=== PATIENT | male | born 1955 | race Caucasian/White ===

== ENCOUNTER 2021-03-21 14:24 | Inpatient (IN) | payer OTHER ==
[~2021-03-21] VITALS: Ht 185.4 cm; Wt 56.2 kg
--- NOTE | 2021-03-21 14:41 | NUR ---
BIB RA FROM [facility] FOR FAILURE TO THRIVE AND POOR APPETITE. PT IS ALERT, ORIENTED X 0. SLURRED SPEECH, MUSCLE RIGIDITY. BREATHING EVEN AND UNLABORED. STRENGTH 3/5 IN UPPER EXTREMITIES. PT TRANSPORTED TO ER BED 11. WILL CONTINUE TO MONITOR.
--- NOTE | 2021-03-21 16:17 | NUR ---
RN DRAWN LABS
[2021-03-21 16:33] LABS: BASOPHILS # (AUTO) 0.1 K/uL (0.0-0.2); BASOPHILS % (AUTO) 0.8 % (0.0-2.0); EOSINOPHILS % (AUTO) 5.6 % (0.0-6.0); HEMATOCRIT 37 % (39-51); HEMOGLOBIN 12.1 g/dL (13.5-17.5); LYMPHOCYTES # (AUTO) 1.5 K/uL (0.8-4.8); LYMPHOCYTES % (AUTO) 18.4 % (20.0-44.0); MEAN CORPUSCULAR HGB CONC 33 g/dl (31.0-36.0); MEAN CORPUSCULAR VOLUME 86 fL (80-96); MONOCYTES # (AUTO) 0.6 K/uL (0.1-1.30); MONOCYTES % (AUTO) 7.7 % (2.0-12.0); NEUTROPHILS # (AUTO) 5.5 K/uL (1.8-8.9); NEUTROPHILS % (AUTO) 67.5 % (43.0-81.0); PLATELET COUNT (AUTO) 206 K/uL (150-450); RED BLOOD CELL COUNT(AUTO) 4.26 MIL/uL (4.5-6.0); WHITE BLOOD COUNT (AUTO) 8.1 K/uL (4.3-11.0)
[2021-03-21 17:01] LABS: CALCIUM, SERUM 8.1 mg/dL (8.5-10.1); CREATININE 0.4 mg/dL (0.6-1.3); POTASSIUM 3.9 mmol/L (3.5-5.1)
[2021-03-21 17:07] LABS: ALBUMIN 2.7 g/dL (3.4-5.0); BILIRUBIN,DIRECT 0.1 mg/dL (0.0-0.2); BILIRUBIN,TOTAL 0.3 mg/dL (0.2-1.0)
--- NOTE | 2021-03-21 17:28 | NUR ---
COVID TEST COLLECTED AND SENT
[2021-03-21] MEDS ORDERED: IV NS 0.9% 1,000 ML BAG IV ONE (18:00)
--- NOTE | 2021-03-21 18:06 | NUR ---
ADMISSION PACKET SUBMITTED.
--- NOTE | 2021-03-21 18:41 | NUR ---
MED SURGE BED REQUESTED.
--- NOTE | 2021-03-21 19:03 | NUR ---
RFA #20 S/L; PATENT & INTACT. IVF NS 1000ML INFUSING.
--- NOTE | 2021-03-21 19:03 | NUR ---
URINE COLLECTED AND SENT TO LAB. PT KEPT CLEAN AND DRY. ALL NEEDS MET
[2021-03-21 19:34] LABS: BILIRUBIN,URINE NEGATIVE (NEGATIVE); COLOR,URINE YELLOW (YELLOW); LEUKOCYTE ESTERASE ,URINE NEGATIVE (NEGATIVE); NITRITE, URINE NEGATIVE (NEGATIVE); PH,URINE 7.5 (5.0-8.0); PROTEIN,URINE NEGATIVE (NEGATIVE); UGLUCOSE NEGATIVE (NEGATIVE)
[2021-03-21 20:08] LABS: BACTERIA,URINE None seen /HPF (None Seen); RBC,URINE 0-2 /HPF (0-2); WBC,URINE 0-2 /HPF (0-3)
[2021-03-21 20:09] LABS: SQUAMOUS EPITHELIAL CELL,UR 0-2 /HPF (None Seen); URINE AMORPHOUS PHOSPHATES Many /HPF (None Seen)
[2021-03-21] MEDS ORDERED: Z GUARD REMEDY 4 OZ OINT TP PRN (21:00)
[2021-03-21] MEDS ORDERED: ACETAMINOPHEN 325 MG TABLET PO PRN (21:00)
[2021-03-21] MEDS ORDERED: ONDANSETRON HCL/PF 4 MG/2 ML VIAL IVP PRN (21:00)
[2021-03-21] MEDS ORDERED: ZOLPIDEM TARTRATE 5 MG TABLET PO PRN (21:00)
--- NOTE | 2021-03-21 21:37 | NUR ---
room 111-1
[2021-03-21 23:00] VITALS: BP 109/70
--- NOTE | 2021-03-21 23:09 | NUR ---
PT TRANSFERRING TO [facility] 111-1 VIA ACLS PROTOCOL. VSS. ALL BELONGINGS WITH PT
[2021-03-21] MEDS: IV D5/0.45 NACL 1,000 ML IV PRN (23:47)
--- NOTE | 2021-03-22 03:33 | NUR ---
admitted to room 111 DX: Failure to Thrive not eating From SNF history Autism right arm flaccid IV infusing 75 ml/HR wound consult ordered multiple wounds bed alarm on side rails up call light withim his reach max assist to turn and cleaned total feeder asp precautions
--- NOTE | 2021-03-22 06:21 | NUR ---
call placed to jorge luis ROBISON explained to herabout the patient is gnawing and chewing his left hand and F/A wrist restraints needed. I attempted to wrap in gauze and he chewed the gauze and tape off I wrapped in gauze and placed a coverup on he chew the cover up to pieces leaving thread in his mouth (I did remove) placed the arm under the covers this also did not work right now thw restraint is work will continue to monitor
[2021-03-22 06:33] LABS: BASOPHILS % (AUTO) 0.5 % (0.0-2.0); EOSINOPHILS % (AUTO) 5.3 % (0.0-6.0); HEMATOCRIT 36 % (39-51); HEMOGLOBIN 11.8 g/dL (13.5-17.5); LYMPHOCYTES # (AUTO) 2.1 K/uL (0.8-4.8); LYMPHOCYTES % (AUTO) 33.3 % (20.0-44.0); MEAN CORPUSCULAR HGB CONC 33 g/dl (31.0-36.0); MEAN CORPUSCULAR VOLUME 86 fL (80-96); MONOCYTES # (AUTO) 0.6 K/uL (0.1-1.30); MONOCYTES % (AUTO) 9.6 % (2.0-12.0); NEUTROPHILS # (AUTO) 3.3 K/uL (1.8-8.9); NEUTROPHILS % (AUTO) 51.3 % (43.0-81.0); PLATELET COUNT (AUTO) 208 K/uL (150-450); RED BLOOD CELL COUNT(AUTO) 4.14 MIL/uL (4.5-6.0); WHITE BLOOD COUNT (AUTO) 6.4 K/uL (4.3-11.0)
[2021-03-22 06:54] LABS: ALBUMIN 2.5 g/dL (3.4-5.0); BILIRUBIN,TOTAL 0.3 mg/dL (0.2-1.0); CALCIUM, SERUM 8.2 mg/dL (8.5-10.1); CREATININE 0.4 mg/dL (0.6-1.3); MAGNESIUM 1.8 mg/dL (1.8-2.4); PHOSPHORUS 3.6 mg/dL (2.5-4.9); POTASSIUM 4.1 mmol/L (3.5-5.1); TOTAL PROTEIN, SERUM 5.7 g/dL (6.4-8.2)
--- NOTE | 2021-03-22 07:18 | NUR ---
RN MORNING NOTE PT RECEIVED IN BED WITH HOB SEMI FOWLERS. PT IS ON RA SAT 98% TOLERATING WELL AT THIS TIME WITH NO SIGNS OF DISTRESS OR LABORED BREATHING. PT IS A/0X1 AND CONFUSED AND MS. PT HAS A DIAPER WITH BILATERAL SOFT WRIST RESTRAINTS. IV ACCESS R WRIST INFUSING WITH D5 1/2 NS AT 75ML/HR INTACT. BED LOCKED IN LOWEST POSITION X3 GUARD RAILS, CALL LIGHT WITHIN REACH, AND ALL HOSPITAL SAFETY PRECAUTIONS ARE IN PLACE. WILL CONTINUE TO MONITOR THIS SHIFT.
--- NOTE | 2021-03-22 09:25 | NUR ---
WOUND CARE CONSULT: REVIEWED CHART, NURSING DOCUMENTATION AND PHOTOS WHICH INDICATE MULTIPLE WOUNDS PRESENT ON ADMISSION INCLUDING NECROTIC WOUND TO RT BACK, SACRAL DEEP TISSUE INJURY WITH SURROUNDING SCARRING, LEFT HIP AND RT HIP DEEP TISSUE INJURIES/DISCOLORATION AND SCROTAL OPEN SKIN. SURGICAL CONSULT CALLED TO DR ALLIE HUDSON. RECOMMENDATIONS MADE FOR WOUND CARE AND SKIN PROTECTION. DISCUSSED WITH NURSING STAFF. IN AGREEMENT WITH PLAN OF CARE. Addendum: 03/22/21 at 0929 by TRACY HURT WNDNU PT IS ON ISOFLEX LOW AIRLOSS BED.
[2021-03-22] MEDS: DAKINS QUARTER STRENGTH (0.125%) 480 ML BOTTLE TOP SCH (10:33)
[2021-03-22] MEDS: IV D5/0.45 NACL 1,000 ML IV PRN (11:36)
--- NOTE | 2021-03-22 18:54 | NUR ---
RN CLOSING NOTE PT CONTINUES TO LAY IN BED WITH HOB ELEVATED. PT IS ON RA SAT 97 - 98% TOLERATING WELL AT THIS TIME WITH NO SIGNS OF DISTRESS OR LABORED BREATHING. PT IS A/0X1 AND CONFUSED AND MS. PT HAS A DIAPER WITH BILATERAL SOFT WRIST RESTRAINTS. IV ACCESS R WRIST INFUSING WITH D5 1/2 NS AT 75ML/HR INTACT. BED LOCKED IN LOWEST POSITION X3 GUARD RAILS, CALL LIGHT WITHIN REACH, AND ALL HOSPITAL SAFETY PRECAUTIONS ARE IN PLACE. WILL ENDORSE TO RHINESTONE SETTER NURSE FOR SHYAM
[2021-03-22 20:00] VITALS: BP 114/58
--- NOTE | 2021-03-23 00:08 | NUR ---
report to nazia huntley for cont of care.
[2021-03-23] MEDS: IV D5/0.45 NACL 1,000 ML IV PRN (01:39)
--- NOTE | 2021-03-23 01:49 | NUR ---
RN NOTE PATIENT AWAKE AND RESPONSIVE AT THIS TIME. BREATHING EVEN AND UNLABORED, ON ROOM AIR, NO SOB NOTED. HOB ELEVATED 30 DEGREES. TOLERATING ROOM AIR. SKIN WARM AND DRY. NOTED WITH RIGHT WRIST PERIPHERAL IV 20G, RUNNING D5 1/2 NS AT 75 CC/HR, NO INFILTRATION NOTED. NOTED WITH BILATERAL SOFT WRIST RESTRAINTS. TWO FINGER SPACE OBSERVED. BILATERAL UPPER ARM PULSE PRESENT. BED LOW, IN LOCKED POSITION, CALL LIGHT WITHIN REACH.
[2021-03-23 04:00] VITALS: BP 131/61
--- NOTE | 2021-03-23 07:37 | NUR ---
RN MORNING NOTE PT OBSERVED IN BED SLEEPING WITH HOB SEMI FOWLERS. PT IS ON RA TOLERATING WELL SAT 96% A/O X0 AND CONFUSED. PT IS MS AND ON BR. PT HAS BILATERAL SOFT WRIST RESTRAINTS AND IS ON REGULAR DIET. PT HAS R WRIST 22 G INFUSING WITH D5 1/2 NS @75ML/HR. PT WILL HAVE GI CONSULT TODAY. WILL CONTINUE TO MONITOR THIS SHIFT.
[2021-03-23 07:38] LABS: BASOPHILS % (AUTO) 0.7 % (0.0-2.0); EOSINOPHILS % (AUTO) 0.8 % (0.0-6.0); HEMATOCRIT 36 % (39-51); HEMOGLOBIN 11.9 g/dL (13.5-17.5); LYMPHOCYTES # (AUTO) 1.4 K/uL (0.8-4.8); LYMPHOCYTES % (AUTO) 21.2 % (20.0-44.0); MEAN CORPUSCULAR HGB CONC 33 g/dl (31.0-36.0); MEAN CORPUSCULAR VOLUME 86 fL (80-96); MONOCYTES # (AUTO) 0.4 K/uL (0.1-1.30); MONOCYTES % (AUTO) 5.6 % (2.0-12.0); NEUTROPHILS # (AUTO) 4.7 K/uL (1.8-8.9); NEUTROPHILS % (AUTO) 71.7 % (43.0-81.0); PLATELET COUNT (AUTO) 211 K/uL (150-450); RED BLOOD CELL COUNT(AUTO) 4.17 MIL/uL (4.5-6.0); WHITE BLOOD COUNT (AUTO) 6.6 K/uL (4.3-11.0)
[2021-03-23] MEDS: DAKINS QUARTER STRENGTH (0.125%) 480 ML BOTTLE TOP SCH (09:25)
--- NOTE | 2021-03-23 11:00 | NUR ---
RN NOTE REPORT GIVEN TO PATRICK DOWNS FOR SHYAM. PT IS STABLE AT THIS TIME.
--- NOTE | 2021-03-23 11:01 | NUR ---
RN NOTES BEDSIDE ENDORSEMENT RECEIVED FROM PATRICK GAMBOA. PATIENT SEEN BY DR. DE LA VEGA W/ ORDERS NOTED. INFORMED THAT PATIENT DID NOT EAT BREAKFAST TODAY PER PATRICK GAMBOA. FOR POSSIBLE PEG PLACEMENT PER DR. DE LA VEGA.
[2021-03-23 11:38] LABS: CALCIUM, SERUM 8.9 mg/dL (8.5-10.1); CREATININE 0.4 mg/dL (0.6-1.3); POTASSIUM 3.9 mmol/L (3.5-5.1)
[2021-03-23 12:00] VITALS: BP 120/65
--- NOTE | 2021-03-23 12:32 | NUR ---
RN NOTES PATIENT SEEN BY SPEECH THERAPIST FOR EVAL; PER ST, PATIENT REFUSED TO EAT.
--- NOTE | 2021-03-23 13:56 | NUR ---
per [facility] covid negative.
--- NOTE | 2021-03-23 14:47 | NUR ---
requested lab to update [facility] for pcr result.
--- NOTE | 2021-03-23 14:48 | NUR ---
per alaina blake pt clear for peg and no need for protime.Or nurse xu notified.
--- NOTE | 2021-03-23 17:20 | NUR ---
RN NOTES PATIENT PICKED UP FOR SURGERY VIA PATIENT'S OWN BED, ACCOMPANIED BY 2 OR NURSES, FOR PEG PLACEMENT W/ DR. SPANN. CONSENT FORMS IN THE CHART AND TAKEN BY OR NURSES.
--- NOTE | 2021-03-23 18:41 | NUR ---
RN NOTES PATIENT RETURNED FROM SURGERY VIA GURNEY ACCOMPANIED BY 2 OR NURSES. POST-OP ORDERS NOTED.
[2021-03-23 20:00] VITALS: BP 110/71
--- NOTE | 2021-03-23 20:08 | NUR ---
RN NOTE RECEIVED PATIENT IN BED, AWAKE, RESPONSIVE TO NAME AND TOUCH. CONFUSED AT THIS TIME. BREATHING EVEN AND UNLABORED. ON 2L/MIN NASAL CANNULA. TOLERATING WELL. NO SOB NOTED. SKIN WARM AND DRY. NOTED WITH RIGHT FOREARM 20G, NO IVF RUNNING. NO INFILTRATION. NOTED WITH PEG TUBE IN PLACE. NO BLEEDING NOTED. CLAMPED. NOTED WITH BILATERAL SOFT WRIST RESTRAINTS. TWO FINGER SPACED OBSERVED. BED LOW, IN LOCKED POSITION. HOB ELEVATED 35 DEGREES. CALL LIGHT WITHIN REACH.
[2021-03-24 04:00] VITALS: BP 110/71
[2021-03-24 07:19] LABS: BASOPHILS # (AUTO) 0.1 K/uL (0.0-0.2); BASOPHILS % (AUTO) 0.5 % (0.0-2.0); EOSINOPHILS % (AUTO) 0.1 % (0.0-6.0); HEMATOCRIT 32 % (39-51); HEMOGLOBIN 10.8 g/dL (13.5-17.5); LYMPHOCYTES # (AUTO) 1.2 K/uL (0.8-4.8); LYMPHOCYTES % (AUTO) 12.9 % (20.0-44.0); MEAN CORPUSCULAR HGB CONC 34 g/dl (31.0-36.0); MEAN CORPUSCULAR VOLUME 85 fL (80-96); MONOCYTES # (AUTO) 0.5 K/uL (0.1-1.30); MONOCYTES % (AUTO) 5.1 % (2.0-12.0); NEUTROPHILS # (AUTO) 7.6 K/uL (1.8-8.9); NEUTROPHILS % (AUTO) 81.4 % (43.0-81.0); PLATELET COUNT (AUTO) 202 K/uL (150-450); RED BLOOD CELL COUNT(AUTO) 3.73 MIL/uL (4.5-6.0); WHITE BLOOD COUNT (AUTO) 9.3 K/uL (4.3-11.0)
--- NOTE | 2021-03-24 07:30 | NUR ---
RN MORNING NOTE PT RECEIVED IN BED RESTING WITH HOB SEMI FOWLERS. PT IS ON 2L NC TOLERATING WELL SAT 96% A/O X0 AND CONFUSED. PT IS MS AND ON BR. PT HAS BILATERAL SOFT WRIST RESTRAINTS AND IS NPO EXCEPT MEDS. PT HAS R FA 20G PATENT AND INTACT. ALL SAFETY MEASURES IN PLACE, BED IN LOWEST LOCKED POSITION. CALL LIGHT WITHIN REACH. WILL CONTINUE TO MONITOR.
[2021-03-24 07:44] LABS: CALCIUM, SERUM 8.8 mg/dL (8.5-10.1); CREATININE 0.4 mg/dL (0.6-1.3); POTASSIUM 3.8 mmol/L (3.5-5.1)
[2021-03-24] MEDS: DAKINS QUARTER STRENGTH (0.125%) 480 ML BOTTLE TOP SCH (08:57)
[2021-03-24 12:00] VITALS: BP 119/60
[2021-03-24] MEDS ORDERED: JEVITY 1.2 CAL 1,000 ML BOTTLE NG PRN (12:30)
[2021-03-24] MEDS ORDERED: CRAN400C PO (15:36)
[2021-03-24] MEDS ORDERED: LACT1CAP89 PO (15:36)
[2021-03-24] MEDS ORDERED: CRAN3875 PO (15:36)
[2021-03-24] MEDS ORDERED: MULT-447 PO (15:36)
[2021-03-24] MEDS ORDERED: LACT10SO3 PO (15:36)
[2021-03-24] MEDS ORDERED: MIRT-121 PO (15:36)
[2021-03-24] MEDS ORDERED: QUET200T PO (15:36)
[2021-03-24] MEDS ORDERED: OMEG-167 PO (15:36)
[2021-03-24] MEDS ORDERED: PHEN100C4 PO (15:36)
[2021-03-24] MEDS ORDERED: ASCO500C17 PO (15:36)
[2021-03-24] MEDS ORDERED: PANT40TA2 PO (15:36)
[2021-03-24] MEDS ORDERED: AMIN887L7 PO (15:36)
--- NOTE | 2021-03-24 19:06 | NUR ---
RN CLOSING NOTE PT COMFORTABLE AND RELAXING IN BED WITH HOB ELEVATED. PT IS ON 2L NC SAT 95 - 98% TOLERATING WELL AT THIS TIME WITH NO SIGNS OF DISTRESS OR LABORED BREATHING. PT IS A/0X1 AND CONFUSED AND MS. PT HAS A DIAPER WITH BILATERAL SOFT WRIST RESTRAINTS. IV ACCESS R FA 20G. PT HAS GTUBE AND IS NO LONGER NPO. RUNNING 20ML FOR FIRST 4 HOURS. TITRATE UP 10 ML EVERY FOR HOUR WITH MAX 60 CC/HR. SAFETY MEASURES IN PLACE, BED LOCKED IN LOWEST POSITION, X3 GUARD RAILS UP, CALL LIGHT WITHIN REACH. WILL ENDORSE TO ALUMINUM HYDROXIDE PROCESS OPERATOR NURSE.
--- NOTE | 2021-03-24 19:30 | NUR ---
MS RN OPENING NOTE RECEIVED PT IN BED, AWAKE AND RESTING. PT IS A/O . STABLE ON 2 L OXYGEN NC. NO SOB OR RESPIRATORY DISTRESS NOTED, NO C/O PAIN AT THIS TIME. RESPIRATIONS EVEN AND UNLABORED. IV ACCESS NOTED IN RIGHT FOREARM G# 20. FALL AND SAFETY MEASURES IN PLACE AND MAINTAINED AT ALL TIMES. BED ALARM ON, BED IN LOW AND LOCKED POSITION, HOB ELEVATED TO SEMI FOWLERS POSITION, CALL LIGHT AND TABLE WITHIN REACH. SIDE RAILS UP X2. WILL CONTINUE WITH PLAN OF CARE. Addendum: 03/24/21 at 2025 by SHAUNA GOYAL RN MS RN OPENING NOTE RECEIVED PT IN BED, AWAKE AND RESTING. PT IS A/O X 0. STABLE ON 2 L OXYGEN NC. NO SOB OR RESPIRATORY DISTRESS NOTED, NO C/O PAIN AT THIS TIME. RESPIRATIONS EVEN AND UNLABORED. IV ACCESS NOTED IN RIGHT FOREARM G# 20. BILATERAL SOFT RESTRAINTS NOTED. FALL AND SAFETY MEASURES IN PLACE AND MAINTAINED AT ALL TIMES. BED ALARM ON, BED IN LOW AND LOCKED POSITION, HOB ELEVATED TO SEMI FOWLERS POSITION, CALL LIGHT AND TABLE WITHIN REACH. SIDE RAILS UP X2. WILL CONTINUE WITH PLAN OF CARE.
[2021-03-24 20:00] VITALS: BP 103/49
--- NOTE | 2021-03-25 03:53 | NUR ---
PT RESTLESS AND UNABLE TO SLEEP PER NURSING ASSESESMENT AMBIEN 5MG PO HS PRN ADMINISTERED AT THIS TIME PER ORDER. WILL CONTINUE TO MONITOR.
[2021-03-25 04:00] VITALS: BP 108/55
[2021-03-25] MEDS: IV D5/0.45 NACL 1,000 ML IV PRN (04:17)
--- NOTE | 2021-03-25 06:30 | NUR ---
RN-CLOSING NOTES PATIENT IN BED AWAKE,ALERT/ O, NO ACUTE DISTRESS NOTED. REMAINED STABLE ON 2L OXYGEN VIA NC. ALL MEDS, CARE PROVIDED ORDERED . REPOSITION Q2HR . RESTRAINTS EVALUATED DURING SHIFT. ALL NEEDS ATTENDED AND ANTICIPATED.WILL ENDORSE TO ONCOMING NURSE FOR CONTINUITY OF CARE.
--- NOTE | 2021-03-25 07:00 | NUR ---
RN NOTE REPORT REC'D FR RN ANGELINE AT BEDSIDE. PT IS AWAKE AND ALERT. ORIENTED TO NAME ONLY. APPEARS COMFORTABLE. IN NO ACUTE DISTRESS. TOLERATING O2 AT 2LPM VIA NC. DRESSING TO MULTIPLE WOUND SITE D/C/I. TOLERATING GTF AT 60 CC/HR WITHOUT GASTRIC RESIDUAL. IVF INFUSING WELL TO RFA AT 75 CC/HR.. BILATERAL SOFT WRIST RESTRAINTS IN PLACE TO PREVENT PULLING OF THERAPEUTIC LINES. SAFETY PRECAUTIONS OBSERVED. WILL CONTINUE TO MONITOR CONDITION.
[2021-03-25 07:27] LABS: CALCIUM, SERUM 8.8 mg/dL (8.5-10.1); CREATININE 0.6 mg/dL (0.6-1.3); POTASSIUM 3.6 mmol/L (3.5-5.1)
[2021-03-25] MEDS: DAKINS QUARTER STRENGTH (0.125%) 480 ML BOTTLE TOP SCH (08:23)
[2021-03-25] MEDS ORDERED: HOME MED MISCELLANEOUS XX SCH (09:00)
[2021-03-25] MEDS ORDERED: PROSOURCE / PROSTAT (PYXIS) 30 ML UDC GT SCH (09:00)
[2021-03-25] MEDS ORDERED: MIRTAZAPINE 15 MG TABLET GT SCH ×2 (09:00→22:00)
[2021-03-25] MEDS ORDERED: LACTAID 1 TAB TABLET GT SCH (09:00)
[2021-03-25] MEDS ORDERED: LACTULOSE 10 G/15 ML UDC (PYXIS) GT PRN (09:00)
[2021-03-25] MEDS ORDERED: QUETIAPINE FUMARATE 100 MG TABLET GT SCH (09:00)
[2021-03-25] MEDS ORDERED: ZOLPIDEM TARTRATE 5 MG TABLET GT PRN (09:23)
[2021-03-25] MEDS ORDERED: ACETAMINOPHEN 650 MG/20.3 ML UDC GT PRN (09:30)
[2021-03-25] MEDS ORDERED: PHENYTOIN SUSP UDC 100 MG/4 ML UDC GT SCH (13:00)
--- NOTE | 2021-03-25 13:11 | NUR ---
RN NOTE WITH ORDER TO DC PT TO SNF. DC PT TO SNF VIA AMBULANCE. PT'S CONDITION IS STABLE DURING TRANSPORT. NO BELONGINGS . IV TO RFA REMOVED. NO BLEEDING NOTED. DC PACKET HANDED TO AMBULANCE SILICATOR. QUESTIONS ANSWERED.
[2021-03-26] MEDS ORDERED: PANTOPRAZOLE 40 MG/PACK PACK GT SCH (09:00)
[2021-03-26] MEDS ORDERED: MULTIVITAMINS,THERAGRAN 1 UDTAB TABLET GT SCH (09:00)
[2021-03-26] MEDS ORDERED: ASCORBIC ACID 500 MG TABLET GT SCH (09:00)
== END 2021-03-25 13:06 | DRG 421 ==
LOC: ER 14:31 → TELE1 21:28 → MEDSG1 21:42
PROVIDERS: ADMIT Nurse Practitioner Acute Care; ATTEND Nurse Practitioner Acute Care
PROC: 0DH63UZ Insertion of Feeding Device into Stomach, Percutaneous Approach (ICD-10-PCS; principal; 2021-03-23)
DX: R62.7 Adult failure to thrive (principal); R64 Cachexia; E43 Unspecified severe protein-calorie malnutrition; E88.09 Other disorders of plasma-protein metabolism, not elsewhere classified; D63.8 Anemia in other chronic diseases classified elsewhere; R13.10 Dysphagia, unspecified; F84.0 Autistic disorder; Z20.822 Contact with and (suspected) exposure to COVID-19; Z68.1 Body mass index [BMI] 19.9 or less, adult; K29.70 Gastritis, unspecified, without bleeding; K21.9 Gastro-esophageal reflux disease without esophagitis; T14.8XXA Other injury of unspecified body region, initial encounter; X58.XXXA Exposure to other specified factors, initial encounter; Y93.9 Activity, unspecified; Y92.129 Unspecified place in nursing home as the place of occurrence of the external cause
CPT/HCPCS: 36415; 43246; 71045-TC; 80048-TC; 80053-TC; 80076-TC; 81001; 83690-TC; 83735-TC; 84100-TC; 85025-TC; 87081-TC; 92526; 92611-TC; A6253; A6403; G0378; J0690; J2704; J3490; J7030; J7042; U0003

== ENCOUNTER 2021-08-22 14:47 | Inpatient (IN) | payer OTHER ==
[~2021-08-22] VITALS: Ht 175.3 cm; Wt 62.1 kg
[~2021-08-22 14:47] MED LIST: AMIN887L7 GT; ASCO500C17 PO; CRAN3875 GT; CRAN400C PO; LACT10SO3 GT; LACT1CAP89 PO; MIRT-121 GT; MULT-447 GT; OMEG-167 GT; PANT40TA2 PO; PHEN100C4 GT; QUET200T GT
--- NOTE | 2021-08-22 14:51 | NUR ---
TO ER BED 5. BIB PA FROM FACILITY WITH THE CONCERN OF INFECTED LEFT UPPER ABDOMEN ABSCESS/CELLULITIS, ABSCESS HARD TO TOUCH AND SWOLLEN. PT ATTCHED TO MONITOR, VITALS ARE WITHIN NORMAL LIMITS. NO RESP DISTRESS NOTED ON ROOM AIR. PT HAS A G TUBE. A&OX2. AWAITING MD ZIMMERMAN.
--- NOTE | 2021-08-22 14:56 | NUR ---
[facility] TO ER - PER PCP - INFECTED LEFT UPPER ABDOMEN ABCESS/CELLULITIS.
--- NOTE | 2021-08-22 15:02 | NUR ---
IV ESTABLIHSED R UPPER ARM 20G. LABS DRAWN AND SENT.
--- NOTE | 2021-08-22 15:04 | NUR ---
COVID TEST COLLECTED AT SENT.
--- NOTE | 2021-08-22 15:20 | NUR ---
16[facility]ENCH CHINYERE PLACED. 1000CC URINE OUTPUT. URINE COLLECTED AND SENT.
[2021-08-22] MEDS ORDERED: IV NS 0.9% 1,000 ML BAG IV ONE (15:30)
[2021-08-22] MEDS ORDERED: PIPERACILLIN /TAZOBACTAM 3.375 G in IV D5W 50 ML IV ONE (15:30)
[2021-08-22] MEDS ORDERED: VANCOMYCIN 1 GM in IV D5W 250 ML IV ONE (15:30)
[2021-08-22 15:31] LABS: BASOPHILS % (AUTO) 0.7 % (0.0-2.0); EOSINOPHILS % (AUTO) 1.4 % (0.0-6.0); HEMATOCRIT 32 % (39-51); HEMOGLOBIN 10.4 g/dL (13.5-17.5); LYMPHOCYTES # (AUTO) 1.3 K/uL (0.8-4.8); LYMPHOCYTES % (AUTO) 25.3 % (20.0-44.0); MEAN CORPUSCULAR HGB CONC 32 g/dl (31.0-36.0); MEAN CORPUSCULAR VOLUME 81 fL (80-96); MONOCYTES # (AUTO) 0.4 K/uL (0.1-1.30); MONOCYTES % (AUTO) 8.7 % (2.0-12.0); NEUTROPHILS # (AUTO) 3.2 K/uL (1.8-8.9); NEUTROPHILS % (AUTO) 63.9 % (43.0-81.0); PLATELET COUNT (AUTO) 211 K/uL (150-450); RED BLOOD CELL COUNT(AUTO) 3.97 MIL/uL (4.5-6.0); WHITE BLOOD COUNT (AUTO) 5.1 K/uL (4.3-11.0)
[2021-08-22] MEDS ORDERED: LACT1CAP71 GT (15:39)
[2021-08-22] MEDS ORDERED: CRAN425C6 GT (15:39)
[2021-08-22] MEDS ORDERED: DOCU-141 GT (15:39)
[2021-08-22] MEDS ORDERED: ASCO500T10 GT (15:39)
[2021-08-22] MEDS ORDERED: MAGN400T26 GT (15:39)
[2021-08-22] MEDS ORDERED: [UNRECOGNIZED DRUG - CODE] GT (15:39)
[2021-08-22] MEDS ORDERED: LACT-96 GT (15:39)
[2021-08-22] MEDS ORDERED: LORA-259 GT (15:39)
[2021-08-22] MEDS ORDERED: CALC1TAB30 GT (15:39)
[2021-08-22] MEDS ORDERED: PANT40SU2 GT (15:39)
[2021-08-22] MEDS ORDERED: ONDA4TAB5 GT (15:40)
[2021-08-22] MEDS ORDERED: ACET-2605 GT ×2 (15:40)
[2021-08-22] MEDS ORDERED: LACT10SO3 GT (15:40)
[2021-08-22] MEDS ORDERED: ZINC1CAP3 GT (15:40)
[2021-08-22] MEDS ORDERED: MAGN400O6 GT (15:40)
[2021-08-22] MEDS ORDERED: ZOLP5TAB8 GT (15:40)
[2021-08-22] MEDS ORDERED: ACET-868 GT (15:40)
[2021-08-22] MEDS ORDERED: CHOL100043 GT (15:40)
[2021-08-22 15:53] LABS: CALCIUM, SERUM 8.3 mg/dL (8.5-10.1); CARBON DIOXIDE 32 mmol/L (21-32); CHLORIDE 100 mmol/L (98-107); CREATININE 0.4 mg/dL (0.6-1.3); GLUCOSE 84 mg/dL (74-106); POTASSIUM 4.2 mmol/L (3.5-5.1); SODIUM SERUM 137 mmol/L (136-145); UREA NITROGEN, BLOOD 21 mg/dL (7-18)
[2021-08-22 15:59] LABS: ALANINE AMINOTRANSFERASE 29 U/L (12-78); ALBUMIN 2.2 g/dL (3.4-5.0); ALKALINE PHOSPHATASE 195 U/L (46-116); ASPARTATE AMINOTRANSFERASE 16 U/L (15-37); BILIRUBIN,DIRECT 0.1 mg/dL (0.0-0.2); BILIRUBIN,TOTAL 0.2 mg/dL (0.2-1.0); TOTAL PROTEIN, SERUM 5.9 g/dL (6.4-8.2)
[2021-08-22] MEDS ORDERED: IOHEXOL-300 100 ML VIAL IV ONE (16:11)
[2021-08-22] MEDS ORDERED: IV NS 0.9% 250 ML IV ONE (16:11)
--- NOTE | 2021-08-22 16:15 | NUR ---
PT TAKEN TO CT VIA DIANA
--- NOTE | 2021-08-22 16:26 | NUR ---
CALLED NURSING SUP REGARDING PT BED
[2021-08-22 16:29] LABS: BILIRUBIN,URINE NEGATIVE (NEGATIVE); COLOR,URINE YELLOW (YELLOW); LEUKOCYTE ESTERASE ,URINE SMALL (NEGATIVE); NITRITE, URINE NEGATIVE (NEGATIVE); PH,URINE 7.5 (5.0-8.0); PROTEIN,URINE NEGATIVE (NEGATIVE); UGLUCOSE NEGATIVE (NEGATIVE); UROBILINOGEN,URINE 0.2 EU/dL (0.2)
--- NOTE | 2021-08-22 16:44 | NUR ---
ROOM 306-1
[2021-08-22 16:56] LABS: BACTERIA,URINE 2+ /HPF (None Seen); SQUAMOUS EPITHELIAL CELL,UR 0-2 /HPF (None Seen); URINE AMORPHOUS PHOSPHATES Few /HPF (None Seen); WBC,URINE 21-50 /HPF (0-3)
--- NOTE | 2021-08-22 18:22 | NUR ---
Zabrina silver in [facility] - 08/22/21 at 1826 by KAREN REPORT GIVEN TO PATRICK JUAREZ 306-1 FOR SHYAM
--- NOTE | 2021-08-22 18:22 | NUR ---
REPORT GIVEN TO PATRICK GARCIA 301-1 FOR SHYAM
--- NOTE | 2021-08-22 18:26 | NUR ---
RN NOTES PATIENT ARRIVED TO UNIT AT ROOM 306-1 VIA GURNEY, ACCOMPANIED BY 2 ER NURSES. NOTED W/ G-TUBE AND NAVARRO CATH IN PLACE.
--- NOTE | 2021-08-22 18:45 | NUR ---
RN NOTES VS TAKEN: BP-113/57, HR-81, T-97.9, R-20, O2 SAT-97% IN ROOM AIR.
[2021-08-22] MEDS ORDERED: MAGNESIUM HYDROXIDE 30 ML UDC GT PRN (19:00)
[2021-08-22] MEDS ORDERED: JEVITY 1.2 CAL 1,000 ML BOTTLE GT PRN ×2 (19:00→22:30)
[2021-08-22] MEDS ORDERED: ACETAMINOPHEN ES 500 MG TABLET GT PRN (19:00)
--- NOTE | 2021-08-22 19:10 | NUR ---
RN NOTES ENDORSED TO AUDIT ANALYST RN FOR SHYAM.
--- NOTE | 2021-08-22 19:40 | NUR ---
RN OPENING NOTE PATIENT AWAKE IN BED. A/OX1. NO S/S OF DISTRESS, BREATHING W/O DIFFICULTY ON ROOM AIR. BRIGIDA #20 SL INTACT AND PATENT. SAFETY MEASURES IN PLACE: BED AT LOWEST POSITION, LOCKED, RAILS UP X3, CALL LEE WITHIN REACH. WILL CONTINUE TO MONITOR PATIENT.
[2021-08-22 20:00] VITALS: BP 101/58
--- NOTE | 2021-08-22 20:20 | NUR ---
RN NOTE CONTACTED [facility]; SPOKE WValente STEVEN. DISCREPANCY IN JEVITY ORDER: SOH: JEVITY 1.2 @ (NO RATE GIVEN) PHYSICAL CHART: JEVITY 1.5 @ 80ML/HR X 18 HRS SPEAKING W/ TENISHA FROM FACILITY: JEVITY 1.5 @ 80ML/HR X 20 HRS DIETARY CONSULT WAS ORDERED. Addendum: 08/22/21 at 2023 by PAT CORNELIUS RN #[phone]
[2021-08-22] MEDS: MIRTAZAPINE 15 MG TABLET GT SCH (22:25)
[2021-08-22] MEDS ORDERED: ACETAMINOPHEN 325 MG TABLET MC PRN (23:00)
[2021-08-22] MEDS ORDERED: LACTULOSE 10 G/15 ML UDC (PYXIS) GT PRN (23:00)
[2021-08-22] MEDS ORDERED: VANCOMYCIN 1.25 GM in IV D5W 250 ML IV ONE (23:00)
[2021-08-22] MEDS: LORAZEPAM 1 MG TABLET GT PRN (23:41)
[2021-08-22] MEDS ORDERED: PIPERACILLIN /TAZOBACTAM 3.375 G VIAL IV ONE (23:51)
[2021-08-22] MEDS ORDERED: VANCOMYCIN 1 GM VIAL ONE (23:51)
[2021-08-23] MEDS ORDERED: VANCOMYCIN 500 MG VIAL ONE (00:16)
[2021-08-23] MEDS: PIPERACILLIN /TAZOBACTAM 3.375 G in IV D5W 50 ML IV SCH ×2 (00:19→04:31)
[2021-08-23 00:46] VITALS: BP 101/58
[2021-08-23] MEDS: ZOLPIDEM TARTRATE 5 MG TABLET GT PRN (00:51)
[2021-08-23] MEDS ORDERED: PIPERACILLIN /TAZOBACTAM 3.375 G VIAL IV ONE (04:16)
[2021-08-23] MEDS: PHENYTOIN SUSP UDC 100 MG/4 ML UDC GT SCH ×4 (05:24→21:18)
--- NOTE | 2021-08-23 07:30 | NUR ---
RN MS NOTES PT IN BED, AWAKE, ALERT, MUMBLING TO HIMSELF, NO SIGN OF PAIN OR DISTRESS, CALL LIGHT WITHIN REACH, GT FEEDING INFUSING WELL, KEPT WARM AND COMFORTABLE IN BED.
--- NOTE | 2021-08-23 07:37 | NUR ---
RN CLOSING NOTE PATIENT AWAKE IN BED. A/OX0. NO S/S OF DISTRESS, BREATHING W/O DIFFICULTY ON RM AIR. BRIGIDA #20 AND RAC #20 BOTH SL INTACT AND PATENT. JEVITY 1.2 @ 80ML/HR. SAFETY MEASURES IN PLACE: BED LOCKED, AT LOWEST POSITION, RAILS UP X3, CALL LEE WITHIN REACH. REPORT ENDORSED TO AND ACKNOWLEDGED BY GEMINI DAY SHIFT RN, FOR SHYAM.
[2021-08-23 08:00] VITALS: BP 135/72
--- NOTE | 2021-08-23 08:00 | NUR ---
RN MS NOTES PT SEEN BY WOUND CARE NURSE TRACY.
--- NOTE | 2021-08-23 08:29 | NUR ---
WOUND CARE CONSULT: PT PRESENTS WITH REDNESS AND RAISED AREA TO LEFT ABDOMEN, STAGE 4 PRESSURE ULCER TO BACK, SACRAL SCARRING, AND LEFT BUTTOCK UNSTAGEABLE ULCER, PRESENT ON ADMISSION. SURGICAL CONSULT CALLED TO DR ALLIE HUDSON. RECOMMENDATIONS MADE FOR WOUND CARE AND SKIN PROTECTION. DISCUSSED WITH NURSING STAFF. DEFER TO SURGICAL TEAM FOR ABDOMINAL AREA REDNESS/RAISED AREA. PT TO BE PLACED ON LARS ISOFLEX LOW AIRLOSS BED. IN AGREEMENT WITH PLAN OF CARE. Addendum: 08/23/21 at 0831 by TRACY HURT WNDNU Amended: Links added.
[2021-08-23] MEDS ORDERED: HYDROGEL DRESSING 90 GM TUBE TP PRN (08:30)
[2021-08-23] MEDS ORDERED: ACETAMINOPHEN ES 500 MG TABLET GT SCH (09:00)
[2021-08-23] MEDS ORDERED: PHENYTOIN EXTENDED RELEASE 100 MG CAPSULE PO SCH (09:00)
[2021-08-23] MEDS ORDERED: LACTULOSE 10 G/15 ML UDC (PYXIS) GT SCH (09:30)
[2021-08-23] MEDS ORDERED: MAGNESIUM CITRATE 296 ML BOTTLE GT ONE (10:00)
[2021-08-23] MEDS: DAKINS QUARTER STRENGTH (0.125%) 480 ML BOTTLE TOP SCH (10:10)
[2021-08-23] MEDS: Z GUARD REMEDY 4 OZ OINT TP SCH (10:11)
[2021-08-23] MEDS: HYDROGEL DRESSING 90 GM TUBE TP SCH (10:11)
[2021-08-23] MEDS: QUETIAPINE FUMARATE 100 MG TABLET GT SCH ×2 (10:16→16:25)
[2021-08-23] MEDS: LACTAID 1 TAB TABLET GT SCH ×2 (10:16→16:25)
[2021-08-23] MEDS: MAGNESIUM OXIDE 400 MG TABLET GT SCH (10:16)
[2021-08-23] MEDS: DOCUSATE SODIUM LIQ 100 MG/10 ML UDC GT SCH (10:17)
[2021-08-23] MEDS: ASCORBIC ACID 500 MG TABLET GT SCH (10:17)
[2021-08-23] MEDS: PANTOPRAZOLE 40 MG/PACK PACK GT SCH (10:17)
[2021-08-23] MEDS: LACTULOSE 10 G/15 ML UDC (PYXIS) GT SCH ×2 (10:17→16:24)
[2021-08-23] MEDS: VANCOMYCIN 0.75 GM in IV D5W 250 ML IV SCH ×2 (10:19→23:31)
[2021-08-23] MEDS: PIPERACILLIN /TAZOBACTAM 3.375 G in IV D5W 100 ML IV SCH ×2 (12:03→20:13)
[2021-08-23] MEDS: ENOXAPARIN SODIUM 40 MG/0.4 ML DISP.SYRIN SQ SCH (12:08)
[2021-08-23] MEDS: PROSOURCE / PROSTAT (PYXIS) 30 ML UDC GT SCH ×2 (13:10→16:24)
[2021-08-23 15:48] VITALS: BP 127/65
[2021-08-23] MEDS: TWOCAL HN 1,000 ML LIQUID GT PRN (16:25)
--- NOTE | 2021-08-23 18:10 | NUR ---
RN MS NOTES PT IN BED, RESTING, NEW ORDER FOR GT FEEDING RECEIVED, NOTED AND CARRIED OUT, PT SEEN BY JORGE BAKING FACTORY WORKER FOR SURGICAL CONSULT, PT ALSO SEEN BY DR. MAYORGA TODAY, PM CARE PROVIDED, ALL DUE MEDS GIVEN ORDERED.
--- NOTE | 2021-08-23 19:10 | NUR ---
MS RN OPENING NOTES: RECEIVED PATIENT IN BED. AWAKE.A/O X1. NO S/S OF DISTRESS NOTED. NO COMPLAIN OF PAIN. CALL LIGHT WITHIN REACH. BED ALARM ON. BED IN LOWEST AND LOCKED POSITION. HOB ELEVATED AT ALL TIMES. WITH TUBE FEEDING RUNNING AT 75ML/HOUR.WITH O2 AT 4L/MIN NASAL CANNULA.WITH NAVARRO CATHETER INTACT WITH CLEAR YELLOW URINE OUTPUT.
[2021-08-23 19:50] VITALS: BP 134/71
[2021-08-23] MEDS: MIRTAZAPINE 15 MG TABLET GT SCH (21:18)
[2021-08-23] MEDS: Z GUARD REMEDY 4 OZ OINT TP PRN (21:26)
[2021-08-24] MEDS: ZOLPIDEM TARTRATE 5 MG TABLET GT PRN (01:06)
[2021-08-24] MEDS: PIPERACILLIN /TAZOBACTAM 3.375 G in IV D5W 100 ML IV SCH ×3 (04:12→20:41)
--- NOTE | 2021-08-24 04:30 | NUR ---
GT FEEDING STOPPED, FLUSHED GT AND CLAMPED.
[2021-08-24] MEDS: PHENYTOIN SUSP UDC 100 MG/4 ML UDC GT SCH ×3 (05:26→22:29)
--- NOTE | 2021-08-24 07:30 | NUR ---
RN MS NOTES PT IN BED, AWAKE, ALERT TO SELF, MUMBLES, NO SIGN OF PAIN OR DISTRESS, CALL LIGHT WITHIN REACH, F/C IN PLACE, DRAINING WELL WITH CLEAR, YELLOW URINE, KEPT WARM AND COMFORTABLE IN BED.
[2021-08-24 07:57] LABS: CALCIUM, SERUM 8.5 mg/dL (8.5-10.1); CREATININE 0.4 mg/dL (0.6-1.3); POTASSIUM 4.5 mmol/L (3.5-5.1)
[2021-08-24 08:00] VITALS: BP 100/56
[2021-08-24] MEDS: LACTULOSE 10 G/15 ML UDC (PYXIS) GT SCH ×2 (08:43→16:43)
[2021-08-24] MEDS: DOCUSATE SODIUM LIQ 100 MG/10 ML UDC GT SCH (08:43)
[2021-08-24] MEDS: PROSOURCE / PROSTAT (PYXIS) 30 ML UDC GT SCH ×3 (08:43→16:44)
[2021-08-24] MEDS: PANTOPRAZOLE 40 MG/PACK PACK GT SCH (08:44)
[2021-08-24] MEDS: ENOXAPARIN SODIUM 40 MG/0.4 ML DISP.SYRIN SQ SCH (08:44)
[2021-08-24] MEDS: ASCORBIC ACID 500 MG TABLET GT SCH (08:45)
[2021-08-24] MEDS: MAGNESIUM OXIDE 400 MG TABLET GT SCH (08:45)
[2021-08-24] MEDS: QUETIAPINE FUMARATE 100 MG TABLET GT SCH ×2 (08:45→16:44)
[2021-08-24] MEDS: HYDROGEL DRESSING 90 GM TUBE TP SCH (08:55)
[2021-08-24] MEDS: Z GUARD REMEDY 4 OZ OINT TP PRN (08:56)
[2021-08-24] MEDS: DAKINS QUARTER STRENGTH (0.125%) 480 ML BOTTLE TOP SCH (08:56)
[2021-08-24] MEDS: Z GUARD REMEDY 4 OZ OINT TP SCH (08:57)
[2021-08-24] MEDS: VANCOMYCIN 0.75 GM in IV D5W 250 ML IV SCH ×2 (10:47→23:37)
[2021-08-24] MEDS: LACTAID 1 TAB TABLET GT SCH ×2 (12:17→16:44)
[2021-08-24] MEDS ORDERED: LIDOCAINE 1%-EPI 1:100,000 20 ML VIAL TP ONE (14:00)
--- NOTE | 2021-08-24 14:30 | NUR ---
RN MS NOTES PT SEEN BY ROWDY ROBISON FOR SURGICAL CONSULT, SPOKE WITH PT'S DPOA/INDUSTRIAL ARTS TEACHER CARLOS ONOFRE, CONSENT GIVEN FOR NEEDLE ASPIRATION POSSIBLE INCISION AND DRAINAGE OF LEFT UPPER ABDOMINAL LEFT LOWER CHEST ABCESS, PROCEDURE DONE AT BEDSIDE, PT TOLERATED PROCEDURE WELL, POST PROCEDURE ORDERS RECEIVED FROM .
[2021-08-24 16:00] VITALS: BP 93/54
[2021-08-24] MEDS: TWOCAL HN 1,000 ML LIQUID GT PRN (17:29)
--- NOTE | 2021-08-24 18:23 | NUR ---
RN MS NOTES PT IN BED, AWAKE, NOT IN DISTRESS, NO SIGN OF PAIN, PM MEDS GIVEN, GT FEEDING INFUSING WELL, TOLERATES WELL, PM CARE PROVIDED, REPOSITIONED FOR COMFORT, ALL NEEDS ATTENDED.
--- NOTE | 2021-08-24 19:05 | NUR ---
MS RN OPENING NOTES: RECEIVED PATIENT IN BED, AWAKE, CONFUSED. NO S/S OF DISTRESS NOTED. CALL LIGHT WITHIN REACH. NOT IN PAIN. BED ALARM ON. BED IN LOWEST AND LOCKED POSITION. HOB ELEVATED AT ALL TIMES. HEELS OFFLOADED AT ALL TIMES. WITH GT FEEDING RUNNING AT 75ML/HOUR FOR 12HOURS.
[2021-08-24 20:00] VITALS: BP 98/58
[2021-08-24] MEDS: MIRTAZAPINE 15 MG TABLET GT SCH (22:29)
[2021-08-25] MEDS: ZOLPIDEM TARTRATE 5 MG TABLET GT PRN (01:11)
--- NOTE | 2021-08-25 04:25 | NUR ---
G-TUBE FEEDING STOPPED,FLUSHED GT AND CLAMPED.
[2021-08-25] MEDS: PIPERACILLIN /TAZOBACTAM 3.375 G in IV D5W 100 ML IV SCH ×3 (05:00→20:00)
[2021-08-25] MEDS: PHENYTOIN SUSP UDC 100 MG/4 ML UDC GT SCH ×3 (05:04→21:11)
[2021-08-25 05:54] LABS: BASOPHILS % (AUTO) 0.5 % (0.0-2.0); EOSINOPHILS % (AUTO) 4.1 % (0.0-6.0); HEMATOCRIT 33 % (39-51); HEMOGLOBIN 10.9 g/dL (13.5-17.5); LYMPHOCYTES # (AUTO) 1.5 K/uL (0.8-4.8); LYMPHOCYTES % (AUTO) 20.8 % (20.0-44.0); MEAN CORPUSCULAR HGB CONC 33 g/dl (31.0-36.0); MEAN CORPUSCULAR VOLUME 80 fL (80-96); MONOCYTES # (AUTO) 0.6 K/uL (0.1-1.30); MONOCYTES % (AUTO) 8.9 % (2.0-12.0); NEUTROPHILS # (AUTO) 4.7 K/uL (1.8-8.9); NEUTROPHILS % (AUTO) 65.7 % (43.0-81.0); PLATELET COUNT (AUTO) 279 K/uL (150-450); RED BLOOD CELL COUNT(AUTO) 4.06 MIL/uL (4.5-6.0); WHITE BLOOD COUNT (AUTO) 7.2 K/uL (4.3-11.0)
[2021-08-25 06:07] LABS: CALCIUM, SERUM 8.3 mg/dL (8.5-10.1); CREATININE 0.4 mg/dL (0.6-1.3); POTASSIUM 4.3 mmol/L (3.5-5.1)
--- NOTE | 2021-08-25 07:42 | NUR ---
RN OPENING NOTE PATIENT RECEIVED IN BED, AO X 1. ABLE TO RESPONDS ALL STIMULI. IN NO ACUTE DISTRESS NOTED. RESPIRATORY EVEN AND UNLABORED ON ROOM AIR. SKIN IS WARM TO TOUCH, KEEP CLEAN/DRY. NAVARRO CONNECTING URINE BAG. KEPT ELEVATED HOB FOR ENSURE AIRWAY AND ASPIRATION PRECAUTION, ALSO LOWEST POSITION OF THE BED, S/R UP X 3, BED ALARM IS ON AT ALL THE TIMES. ALL SAFETY PRECAUTION APPLIED. CALL LIGHT WITHIN REACH, WILL CONTINUE TO MONITOR.
[2021-08-25 08:00] VITALS: BP 112/70
[2021-08-25] MEDS: ASCORBIC ACID 500 MG TABLET GT SCH (08:33)
[2021-08-25] MEDS: DOCUSATE SODIUM LIQ 100 MG/10 ML UDC GT SCH (08:33)
[2021-08-25] MEDS: QUETIAPINE FUMARATE 100 MG TABLET GT SCH ×2 (08:33→17:25)
[2021-08-25] MEDS: LACTULOSE 10 G/15 ML UDC (PYXIS) GT SCH ×2 (08:33→17:25)
[2021-08-25] MEDS: Z GUARD REMEDY 4 OZ OINT TP SCH (08:34)
[2021-08-25] MEDS: HYDROGEL DRESSING 90 GM TUBE TP SCH (08:35)
[2021-08-25] MEDS: DAKINS QUARTER STRENGTH (0.125%) 480 ML BOTTLE TOP SCH (08:35)
[2021-08-25] MEDS: LACTAID 1 TAB TABLET GT SCH ×2 (08:39→17:25)
[2021-08-25] MEDS: ENOXAPARIN SODIUM 40 MG/0.4 ML DISP.SYRIN SQ SCH (08:40)
[2021-08-25] MEDS: MAGNESIUM OXIDE 400 MG TABLET GT SCH (08:40)
[2021-08-25] MEDS: PROSOURCE / PROSTAT (PYXIS) 30 ML UDC GT SCH ×3 (08:42→17:29)
[2021-08-25] MEDS: VANCOMYCIN 0.75 GM in IV D5W 250 ML IV SCH ×2 (09:46→21:59)
[2021-08-25] MEDS: PANTOPRAZOLE 40 MG/PACK PACK GT SCH (09:46)
[2021-08-25] MEDS: LORAZEPAM 1 MG TABLET GT PRN ×2 (10:24→23:03)
[2021-08-25 16:34] VITALS: BP 131/73
[2021-08-25] MEDS: TWOCAL HN 1,000 ML LIQUID GT PRN (18:30)
--- NOTE | 2021-08-25 18:50 | NUR ---
RN CLOSE NOTE PATIENT IN BED, CONFUSED. IN NO ACUTE DISTRESS OBSERVED. RESPIRATION EVEN AND UNLABORED ON ROOM AIR. SKIN IS WARM TO TOUCH KEEP CLEAN//DRY, INTACT NEW IV SITE ON RIGHT FA G 20. NAVARRO CONNECTING TO URINE BAG. TUBE FEEDING RESTARTED SCHEDULE, NO RESIDUAL NOTED. KEPT ELEVATED HOB FOR ASPIRATION PRECAUTION AND ENSURE AIR WAY, ALSO LOWEST POSITION OF THE BED FOR SAFETY. CALL LIGHT WITHIN REACH, WILL ENDORSE TO FOREIGN SERVICE TEACHER.
--- NOTE | 2021-08-25 19:35 | NUR ---
MS RN NOTES RECEIVED ON BED A/O X1,CONFUSED.,NAVARRO CATH IN PLACE DRAINING YELLOWISH URINE OUTPUT.WITH GT FEEDING IN PROGRESS AT 75ML/HR RATE X 20 HOURS,NOTED 10ML RESIDUAL VOLUME,HOB ELEVATED FOR ASPIRATION PRECAUTION.WILL REPOSITION PER PROTOCOL,WILL CONTINUE TO MONITOR STATUS.
[2021-08-25 20:00] VITALS: BP 117/66
[2021-08-25] MEDS: MIRTAZAPINE 15 MG TABLET GT SCH (21:11)
--- NOTE | 2021-08-25 23:03 | NUR ---
MS RN NOTES RESTLESS,SCREAMING,ATIVAN 1MG GIVEN PER GT ORDERED.
[2021-08-26] MEDS: PIPERACILLIN /TAZOBACTAM 3.375 G in IV D5W 100 ML IV SCH (03:58)
[2021-08-26] MEDS: PHENYTOIN SUSP UDC 100 MG/4 ML UDC GT SCH ×2 (04:11→12:04)
--- NOTE | 2021-08-26 04:11 | NUR ---
MS RN NOTES HAVING PAIN ON BACK WOUND SITE,TYLENOL 650MG GIVEN PER GT ORDERED.
[2021-08-26 06:04] LABS: BASOPHILS % (AUTO) 0.6 % (0.0-2.0); EOSINOPHILS % (AUTO) 3.4 % (0.0-6.0); HEMATOCRIT 35 % (39-51); HEMOGLOBIN 11.3 g/dL (13.5-17.5); LYMPHOCYTES # (AUTO) 1.5 K/uL (0.8-4.8); LYMPHOCYTES % (AUTO) 20.7 % (20.0-44.0); MEAN CORPUSCULAR HGB CONC 33 g/dl (31.0-36.0); MEAN CORPUSCULAR VOLUME 81 fL (80-96); MONOCYTES # (AUTO) 0.6 K/uL (0.1-1.30); NEUTROPHILS # (AUTO) 4.9 K/uL (1.8-8.9); NEUTROPHILS % (AUTO) 67.3 % (43.0-81.0); PLATELET COUNT (AUTO) 255 K/uL (150-450); RED BLOOD CELL COUNT(AUTO) 4.29 MIL/uL (4.5-6.0); WHITE BLOOD COUNT (AUTO) 7.2 K/uL (4.3-11.0)
--- NOTE | 2021-08-26 06:11 | NUR ---
MS RN NOTES SLEPT WITH INTERVALS,CALM AND RE DIRECTABLE,GT FEEDING OFF THIS TIME,REPOSITION SIDE TO SIIDE PER PROTOCOL BUT HE ALWAYS GO BACK TO HIS ORIGINAL POSITION,DRESSING TO ABDOMEN INTACT AND DRY.ALL DUE MEDS ADMINISTERED /GT TOLERATED WELL IN NO ACUTE DISTRESS.
[2021-08-26 06:14] LABS: CALCIUM, SERUM 8.6 mg/dL (8.5-10.1); CREATININE 0.4 mg/dL (0.6-1.3); POTASSIUM 4.2 mmol/L (3.5-5.1)
[2021-08-26 08:00] VITALS: BP 104/62
--- NOTE | 2021-08-26 08:00 | NUR ---
RN OPENING NOTE PATIENT RECEIVED IN BED, AO X 1. ABLE TO RESPONDS ALL STIMULI. IN NO ACUTE DISTRESS NOTED. RESPIRATORY EVEN AND UNLABORED ON ROOM AIR. SKIN IS WARM TO TOUCH, KEEP CLEAN/DRY. G TUBE HAS BEEN HOLD IT FOR 20 HOURS PER DAY. NAVARRO CONNECTING TO URINE BAG. KEPT ELEVATED HOB FOR ENSURE AIRWAY AND ASPIRATION PRECAUTION, ALSO LOWEST POSITION OF THE BED, S/R UP X 3, BED ALARM IS ON AT ALL THE TIMES. ALL SAFETY PRECAUTION APPLIED. CALL LIGHT WITHIN REACH, WILL CONTINUE TO MONITOR.
[2021-08-26] MEDS ORDERED: VANC750P13 IV (08:21)
[2021-08-26] MEDS ORDERED: PIPE3.379 IV (08:21)
[2021-08-26] MEDS: PROSOURCE / PROSTAT (PYXIS) 30 ML UDC GT SCH ×2 (08:42→12:04)
[2021-08-26] MEDS: ENOXAPARIN SODIUM 40 MG/0.4 ML DISP.SYRIN SQ SCH (08:43)
[2021-08-26] MEDS: PANTOPRAZOLE 40 MG/PACK PACK GT SCH (08:44)
[2021-08-26] MEDS: QUETIAPINE FUMARATE 100 MG TABLET GT SCH (08:44)
[2021-08-26] MEDS: DOCUSATE SODIUM LIQ 100 MG/10 ML UDC GT SCH (08:44)
[2021-08-26] MEDS: LACTULOSE 10 G/15 ML UDC (PYXIS) GT SCH (08:44)
[2021-08-26] MEDS: ASCORBIC ACID 500 MG TABLET GT SCH (08:44)
[2021-08-26] MEDS: MAGNESIUM OXIDE 400 MG TABLET GT SCH (08:45)
[2021-08-26] MEDS: HYDROGEL DRESSING 90 GM TUBE TP SCH (08:47)
[2021-08-26] MEDS: DAKINS QUARTER STRENGTH (0.125%) 480 ML BOTTLE TOP SCH (08:47)
[2021-08-26] MEDS: Z GUARD REMEDY 4 OZ OINT TP SCH (08:47)
[2021-08-26] MEDS: LACTAID 1 TAB TABLET GT SCH (10:19)
[2021-08-26] MEDS: VANCOMYCIN 0.75 GM in IV D5W 250 ML IV SCH (10:19)
--- NOTE | 2021-08-26 11:36 | NUR ---
[facility], GIVEN REPORT BARRIE NGUYEN INCLUDE PICKUP TIME AT PHONE NUMBER:[phone].
--- NOTE | 2021-08-26 14:00 | NUR ---
2 CONTACT LENS BLOCKER PICKED UP PATIENT AND GIVEN REPOT. PATIENT IN NO ACUTE DISTRESS OBSERVED. WOUND PICTURE TAKEN ON LEFT CHEST AND DRESSING CHANGED, BUT PATIENT REFUSED TAKE PICTURE ON BACK AND LEFT BUTTOCK.
--- NOTE | 2021-08-26 14:00 | NUR ---
CALLED PHARMACY X3, REGARDING IV ZOSYN TO REMINDER DUE AT 1200, HOWEVER, UNABLE TO START IV ABX AT THIS TIME.
== END 2021-08-26 14:05 | DRG 951 ==
LOC: ER 14:47 → TRANSITION 16:30 → MED 16:49
PROVIDERS: ADMIT Internal Medicine; ATTEND Internal Medicine
PROC: 0J960ZZ Drainage of Chest Subcutaneous Tissue and Fascia, Open Approach (ICD-10-PCS; principal; 2021-08-24)
PROC: 0J980ZZ Drainage of Abdomen Subcutaneous Tissue and Fascia, Open Approach (ICD-10-PCS; 2021-08-24)
DX: J15.6 Pneumonia due to other Gram-negative bacteria (principal); G93.41 Metabolic encephalopathy; E43 Unspecified severe protein-calorie malnutrition; J96.10 Chronic respiratory failure, unspecified whether with hypoxia or hypercapnia; L89.124 Pressure ulcer of left upper back, stage 4; L89.154 Pressure ulcer of sacral region, stage 4; L03.311 Cellulitis of abdominal wall; F03.90 Unspecified dementia, unspecified severity, without behavioral disturbance, psychotic disturbance, mood disturbance, and anxiety; R16.2 Hepatomegaly with splenomegaly, not elsewhere classified; E88.09 Other disorders of plasma-protein metabolism, not elsewhere classified; L03.313 Cellulitis of chest wall; Z20.822 Contact with and (suspected) exposure to COVID-19; N39.0 Urinary tract infection, site not specified; F84.0 Autistic disorder; Z79.899 Other long term (current) drug therapy; K52.89 Other specified noninfective gastroenteritis and colitis; D64.9 Anemia, unspecified; K56.41 Fecal impaction; K76.9 Liver disease, unspecified; Y95 Nosocomial condition; G40.909 Epilepsy, unspecified, not intractable, without status epilepticus; M45.9 Ankylosing spondylitis of unspecified sites in spine; S31.829A Unspecified open wound of left buttock, initial encounter; X58.XXXA Exposure to other specified factors, initial encounter; Y92.9 Unspecified place or not applicable; F09 Unspecified mental disorder due to known physiological condition; L02.213 Cutaneous abscess of chest wall; L02.211 Cutaneous abscess of abdominal wall
CPT/HCPCS: 36415; 71045-TC; 71260-TC; 80048-TC; 80076-TC; 80202-TC; 81001; 83605-TC; 84484-TC; 85025-TC; 85730-TC; 87040-TC; 87070-TC; 87081-TC; 87086-TC; A6248; A6253; A6407; C9803; G0378; J1650; J2543; J3370; J3490; J7030; J7050; J7060; Q9967

== ENCOUNTER 2021-12-12 20:00 | Inpatient (IN) | payer OTHER ==
[~2021-12-12] VITALS: Ht 170.2 cm; Wt 65.8 kg
[~2021-12-12 20:00] MED LIST changes: +ACET-2605 GT; +ACET-868 GT; -ASCO500C17 PO; +ASCO500T10 GT; +CALC1TAB30 GT; +CHOL100043 GT; -CRAN400C PO; +CRAN425C6 GT; +DOCU-141 GT; +LACT-96 GT; +LACT1CAP71 GT; -LACT1CAP89 PO; +LORA-259 GT; +MAGN400O6 GT; +MAGN400T26 GT; +ONDA4TAB5 GT; +PANT40SU2 GT; -PANT40TA2 PO; +PIPE3.379 IV; +VANC750P13 IV; +ZINC1CAP3 GT; +ZOLP5TAB8 GT; +[UNRECOGNIZED DRUG - CODE] GT
--- NOTE | 2021-12-12 20:58 | NUR ---
BIBRA FROM SNF C/O FAILURE TO THRIVE AND NON HEALING WOUND RIGHT AND LEFT TROCHANTAR REGION. PT AWAKE AND ALERT X0 TOLERATING ROOM AIR WELL. PLACED ON MONITOR AND PULSE OX.
[2021-12-12] MEDS ORDERED: IV NS 0.9% 1,000 ML BAG IV ONE ×2 (21:00→22:00)
--- NOTE | 2021-12-12 21:08 | NUR ---
urine collected sent to lab
--- NOTE | 2021-12-12 21:08 | NUR ---
blood collected sent to lab
--- NOTE | 2021-12-12 21:08 | NUR ---
covid swab collected sent to lab
[2021-12-12 21:16] LABS: BASOPHILS % (AUTO) 0.3 % (0.0-2.0); EOSINOPHILS % (AUTO) 1.6 % (0.0-6.0); HEMATOCRIT 24 % (39-51); HEMOGLOBIN 7.1 g/dL (13.5-17.5); LYMPHOCYTES # (AUTO) 1.6 K/uL (0.8-4.8); LYMPHOCYTES % (AUTO) 13.6 % (20.0-44.0); MEAN CORPUSCULAR HGB CONC 30 g/dl (31.0-36.0); MEAN CORPUSCULAR VOLUME 73 fL (80-96); MONOCYTES # (AUTO) 0.8 K/uL (0.1-1.30); MONOCYTES % (AUTO) 7.1 % (2.0-12.0); NEUTROPHILS # (AUTO) 8.9 K/uL (1.8-8.9); NEUTROPHILS % (AUTO) 77.4 % (43.0-81.0); PLATELET COUNT (AUTO) 430 K/uL (150-450); WHITE BLOOD COUNT (AUTO) 11.5 K/uL (4.3-11.0)
[2021-12-12 21:26] LABS: BILIRUBIN,URINE NEGATIVE (NEGATIVE); COLOR,URINE YELLOW (YELLOW); LEUKOCYTE ESTERASE ,URINE SMALL (NEGATIVE); NITRITE, URINE NEGATIVE (NEGATIVE); PROTEIN,URINE 30 mg/dl (NEGATIVE); UGLUCOSE NEGATIVE (NEGATIVE)
[2021-12-12 21:49] LABS: CALCIUM, SERUM 8.1 mg/dL (8.5-10.1); CARBON DIOXIDE 28 mmol/L (21-32); CHLORIDE 105 mmol/L (98-107); CREATININE 0.4 mg/dL (0.6-1.3); GLUCOSE 116 mg/dL (74-106); POTASSIUM 4.1 mmol/L (3.5-5.1); SODIUM SERUM 137 mmol/L (136-145); UREA NITROGEN, BLOOD 32 mg/dL (7-18)
[2021-12-12 21:50] LABS: BACTERIA,URINE Many /HPF (None Seen)
[2021-12-12 21:51] LABS: CALCIUM PHOSPHATE CRYSTALS,UR Many /HPF (None Seen); SQUAMOUS EPITHELIAL CELL,UR Rare /HPF (None Seen)
[2021-12-12 21:55] LABS: ALANINE AMINOTRANSFERASE 30 U/L (12-78); ALBUMIN 1.5 g/dL (3.4-5.0); ALKALINE PHOSPHATASE 251 U/L (46-116); ASPARTATE AMINOTRANSFERASE 25 U/L (15-37); BILIRUBIN,DIRECT 0.1 mg/dL (0.0-0.2); BILIRUBIN,TOTAL 0.2 mg/dL (0.2-1.0); TOTAL PROTEIN, SERUM 6.2 g/dL (6.4-8.2)
[2021-12-12] MEDS ORDERED: CEFTRIAXONE 1 G in IV D5W 50 ML IV ONE (22:00)
[2021-12-12 22:03] LABS: THYROID STIMULATING HORMONE 2.319 uIU/mL (0.358-3.74)
[2021-12-12] MEDS ORDERED: CEFTRIAXONE 1GM BAG (ER ONLY) 50 ML IV ONE (22:18)
[2021-12-12 23:19] LABS: IRON, SERUM 18 ug/dl (50-175); TOTAL IRON BINDING CAPACITY 188 ug/dl (250-450)
[2021-12-12 23:34] LABS: FERRITIN 82 ng/mL (8-388)
[2021-12-13] VITALS (9 sets, daily range): BP systolic 84–104; BP diastolic 42–59
[2021-12-13] MEDS ORDERED: Z GUARD REMEDY 4 OZ OINT TP PRN
[2021-12-13] MEDS ORDERED: ONDANSETRON HCL/PF 4 MG/2 ML VIAL IVP PRN
[2021-12-13] MEDS ORDERED: MAGNESIUM HYDROXIDE 30 ML UDC GT PRN
[2021-12-13] MEDS ORDERED: VANCOMYCIN 1 GM in IV D5W 250ml IV ONE (01:30)
[2021-12-13] MEDS ORDERED: ZOLPIDEM TARTRATE 5 MG TABLET GT PRN (01:30)
[2021-12-13] MEDS ORDERED: ACETAMINOPHEN 650 MG/20.3 ML UDC NG PRN (01:30)
[2021-12-13] MEDS ORDERED: VANCOMYCIN 1 GM VIAL ONE (01:39)
[2021-12-13] MEDS ORDERED: LORAZEPAM 1 MG TABLET ONE (02:36)
[2021-12-13] MEDS: LORAZEPAM 1 MG TABLET GT PRN (02:49)
[2021-12-13] MEDS ORDERED: CEFEPIME 2 GM in IV D5W 100 ML IV SCH (05:00)
[2021-12-13] MEDS ORDERED: PHENYTOIN SUSP UDC 100 MG/4 ML UDC ONE (05:31)
[2021-12-13] MEDS ORDERED: CEFEPIME 1 GM VIAL ONE (05:31)
[2021-12-13 05:41] LABS: BASOPHILS % (AUTO) 0.4 % (0.0-2.0); EOSINOPHILS % (AUTO) 0.6 % (0.0-6.0); HEMATOCRIT 23 % (39-51); LYMPHOCYTES # (AUTO) 1.3 K/uL (0.8-4.8); MEAN CORPUSCULAR HGB CONC 30 g/dl (31.0-36.0); MEAN CORPUSCULAR VOLUME 74 fL (80-96); MONOCYTES # (AUTO) 0.6 K/uL (0.1-1.30); MONOCYTES % (AUTO) 5.8 % (2.0-12.0); NEUTROPHILS # (AUTO) 8.9 K/uL (1.8-8.9); NEUTROPHILS % (AUTO) 81.2 % (43.0-81.0); PLATELET COUNT (AUTO) 362 K/uL (150-450); RED BLOOD CELL COUNT(AUTO) 3.08 MIL/uL (4.5-6.0); WHITE BLOOD COUNT (AUTO) 10.9 K/uL (4.3-11.0)
[2021-12-13] MEDS: PHENYTOIN SUSP UDC 100 MG/4 ML UDC GT SCH ×3 (05:41→21:22)
[2021-12-13 05:53] LABS: HEMOGLOBIN 6.7 g/dL (13.5-17.5)
[2021-12-13 05:56] LABS: BAND % (MANUAL) 2 % (0.0-5.0); LYMPHOCYTES % (MANUAL) 14 % (16-48)
[2021-12-13 05:57] LABS: CALCIUM, SERUM 7.9 mg/dL (8.5-10.1); CREATININE 0.4 mg/dL (0.6-1.3); MAGNESIUM 1.8 mg/dL (1.8-2.4); MONOCYTES % (MANUAL) 4 % (0-11.0); NEUTROPHILS % (MANUAL) 80 (42-76); POTASSIUM 3.5 mmol/L (3.5-5.1)
--- NOTE | 2021-12-13 06:35 | NUR ---
HGB LEVEL OF 6.7 WAS RELAYED TO MATT BERG NP WITH A NEW ORDER FOR ONE UNIT PRBC. NOTED.
--- NOTE | 2021-12-13 07:08 | NUR ---
RECIEVED 304-2
--- NOTE | 2021-12-13 07:49 | NUR ---
PT REPORT GIVEN TO PATRICK DENNISON.
--- NOTE | 2021-12-13 07:55 | NUR ---
PER ANITA COMPUTATIONAL THEORY SCIENTIST AT [facility] ([phone]), PATIENT DOES NOT HAVE A CONTACTABLE RESPONSIBLE GREEN PARTY AND IS NOT CONSERVED PER [facility].
[2021-12-13] MEDS ORDERED: ARGI1POW13 GT (08:04)
[2021-12-13] MEDS ORDERED: FERR300L GT (08:04)
[2021-12-13] MEDS ORDERED: COLL30OI TP (08:04)
[2021-12-13] MEDS: ZINC SULFATE 220 MG CAPSULE GT SCH (09:00)
[2021-12-13] MEDS: CALCIUM CARB 600MG /VIT D 1 EACH TABLET GT SCH (09:00)
[2021-12-13] MEDS: LACTAID 1 TAB TABLET GT SCH ×2 (09:00→18:07)
[2021-12-13] MEDS: PANTOPRAZOLE 40 MG/PACK PACK GT SCH (09:00)
[2021-12-13] MEDS: PROSOURCE / PROSTAT (PYXIS) 30 ML UDC GT SCH ×3 (09:00→18:07)
[2021-12-13] MEDS ORDERED: MULTIVITAMIN LIQ 5 ML UDC GT SCH (09:00)
[2021-12-13] MEDS ORDERED: Medication Not On Formulary EA (Omega-3 Fatty Acids/Fish Oil (Fish Oil 1,000 Mg Softgel) GT SCH (09:00)
[2021-12-13] MEDS: ASCORBIC ACID 500 MG TABLET GT SCH (09:00)
[2021-12-13] MEDS: CHOLECALCIFEROL 1,000 UNIT TABLET (VIT D3) GT SCH (09:00)
[2021-12-13] MEDS: QUETIAPINE FUMARATE 100 MG TABLET GT SCH ×2 (09:00→18:07)
[2021-12-13] MEDS: VANCOMYCIN 0.75 GM in IV D5W 250 ML IV SCH ×2 (10:00→18:07)
--- NOTE | 2021-12-13 10:30 | NUR ---
RN Receiving Report. PT Arrived to unit unable to assess mental status. Patient mumbles and moans. Multiple wounds and foul smell. Will perform assessment and document. Received report. Blood for transfusion has been order and currently pending. Will continue to monitor. All safety precautions taken, call light and table within reach, bed at lowest position.
--- NOTE | 2021-12-13 10:57 | NUR ---
WOUND CARE CONSULT: PT PRESENTS WITH MULTIPLE PRESSURE ULCERS, PRESENT ON ADMISSION INCLUDING RT SHOULDER UNSTAGEABLE ULCER, RT AND LEFT HIP STAGE 4 ULCERS, UNSTAGEABLE RT BUTTOCK ULCER, RT LATERAL FOOT ESCHAR, RT HEEL REDNESS/SCARRING, RT BACK STAGE [address] ALLIE HUDSON AND DR DOTSON CALLED FOR SURGICAL AND DPM CONSULTS. RECOMMENDATIONS MADE FOR SKIN PROTECTION AND WOUND CARE. DISCUSSED WITH NURSING STAFF. PT PLACED ON LARS ISOFLEX LOW AIRLOSS BED. IN AGREEMENT WITH PLAN OF CARE. Addendum: 12/13/21 at 1100 by TRACY HURT WNDNU Amended: Links added.
[2021-12-13] MEDS ORDERED: LIDOCAINE 1%-EPI 1:200,000 SDV 10 ML VIAL IJ ONE (15:00)
[2021-12-13] MEDS ORDERED: SILVER NITRATE APPLICATOR 1 EA BOX TP ONE (15:00)
[2021-12-13] MEDS: ENSURE ENLIVE 237 ML LIQUID (VANILLA) PO SCH (17:00)
[2021-12-13] MEDS: DAKINS QUARTER STRENGTH (0.125%) 480 ML BOTTLE TOP SCH (17:53)
[2021-12-13] MEDS: SOD FERRIC GLUC 125 MG in IV NS 0.9% 100 ML IV SCH (18:06)
[2021-12-13] MEDS ORDERED: JEVITY 1.2 CAL 1,000 ML BOTTLE GT PRN (19:00)
--- NOTE | 2021-12-13 19:30 | NUR ---
RN OPENING NOTES RECEIVED PT IN BED, ASLEEP, AWAKENS TO VERBAL AND TACTILE STIMULI. AOx1, ABLE TO MUMBLE INCOMPREHENSIBLE WORDS. ON RA AND TOLERATING WELL. NO SOB NOTED. NO S/SX OF RESPIRATORY DISTRESS NOTED. IV ACCESS IN L WRIST #20G. IV IS INTACT, PATENT, AND FLUSHING WELL. SAFETY PRECAUTIONS IN PLACE: BED IN LOWEST, LOCKED POSITION, SIDERAILS UP x2, AND BRAKES ON. TABLE AND CALL LIGHT WITHIN REACH. ALL NEEDS MET AT THIS TIME.
--- NOTE | 2021-12-13 19:34 | NUR ---
RN Closing Note PT confused, not able to assess mental status. Per ER nurse, patient is not assigned to conservator. Transfused RBCs as ordered this am, signed consent with physician. Patient tolerated RBC1 unit well, no sign of adverse reactions, vital signs stable.Left hand IV, no sign of infiltration, no pain reported. Patient remained safe throughout shift, no adverse events. All safety precautions taken, call light and table within reach, bed at lowest position. Missed patients Vanco dose, pharmacy made aware and will modify schedule. will endorse to night nurse, patients status. Air mattress and feedings pending delivery. Vanco running as ordered. IV shows no signs of infiltration.
[2021-12-13] MEDS: CEFEPIME 2 GM in IV D5W 100 ML IV SCH (20:34)
--- NOTE | 2021-12-13 21:15 | NUR ---
RN NOTES CONTACTED PATIENT'S FACILITY, [facility], AT TO DETERMINE WHO WAS BEST TO CONTACT FOR PROCEDURE CONSENT. SPOKE TO VORTEX OPERATOR WHO SAID IT WOULD BE BEST TO CALL AR GUARANTOR, ANTOINETTE ALCALA AT . VORTEX OPERATOR ALSO ADVISED THAT IT WOULD BE BEST TO CALL IN THE MORNING AROUND 0800 AND 0900. ATTEMPTED TO CALL ANTOINETTE @ 2102 BUT IT WAS FORWARDED TO [facility]. WILL CALL AGAIN IN THE MORNING.
[2021-12-13] MEDS: MIRTAZAPINE 15 MG TABLET GT SCH (21:22)
[2021-12-14] MEDS: VANCOMYCIN 0.75 GM in IV D5W 250 ML IV SCH (02:11)
[2021-12-14] MEDS: PHENYTOIN SUSP UDC 100 MG/4 ML UDC GT SCH ×3 (05:08→21:03)
--- NOTE | 2021-12-14 06:52 | NUR ---
RN CLOSING NOTES PT IN BED, ASLEEP, AWAKENS TO VERBAL AND TACTILE STIMULI. AOx1, ABLE TO MUMBLE INCOMPREHENSIBLE WORDS. ON RA AND TOLERATING WELL. NO SOB NOTED. NO S/SX OF RESPIRATORY DISTRESS NOTED. IV ACCESS IN R FA #20G. IV IS INTACT, PATENT, AND FLUSHING WELL. ALL ORDERS CARRIED OUT. ALL NEEDS MET. PT KEPT CLEAN AND DRY. SAFETY PRECAUTIONS IN PLACE: BED IN LOWEST, LOCKED POSITION, SIDERAILS UP x2, AND BRAKES ON. TABLE AND CALL LIGHT WITHIN REACH. WILL ENDORSE TO ONCOMING SHIFT FOR SHYAM.
--- NOTE | 2021-12-14 07:41 | NUR ---
RN Opening Note Patient Confused, not able to express his own concerns. Using FLACC pts pain is 2/10. Patient with no signs of distress other than pain level. IV with no signs of infiltration. Called the number listed below and left message regarding need for consent. Will continue to monitor throughout shift and provide care as needed. Bedside at lowest position, call light and table within reach. Note From Night Nurse: GUARANTOR, ANTOINETTE ALCALA AT . CRUSHER LOADER EQUIPMENT OPERATOR ALSO ADVISED THAT IT WOULD BE BEST TO CALL IN THE MORNING AROUND 0800 AND 0900. ATTEMPTED TO CALL ANTOINETTE @ 210 BUT [facility]WARD[facility] TO [facility]. WILL CALL AGAIN IN THE MORNING.
[2021-12-14 08:00] VITALS: BP 96/50
[2021-12-14] MEDS: ENSURE ENLIVE 237 ML LIQUID (VANILLA) PO SCH ×2 (08:00→17:00)
[2021-12-14 08:08] LABS: BASOPHILS # (AUTO) 0.1 K/uL (0.0-0.2); BASOPHILS % (AUTO) 0.5 % (0.0-2.0); EOSINOPHILS % (AUTO) 1.7 % (0.0-6.0); HEMATOCRIT 28 % (39-51); HEMOGLOBIN 8.9 g/dL (13.5-17.5); LYMPHOCYTES # (AUTO) 0.9 K/uL (0.8-4.8); LYMPHOCYTES % (AUTO) 7.8 % (20.0-44.0); MEAN CORPUSCULAR HGB CONC 31 g/dl (31.0-36.0); MEAN CORPUSCULAR VOLUME 75 fL (80-96); MONOCYTES # (AUTO) 0.7 K/uL (0.1-1.30); MONOCYTES % (AUTO) 6.9 % (2.0-12.0); NEUTROPHILS # (AUTO) 9.1 K/uL (1.8-8.9); NEUTROPHILS % (AUTO) 83.1 % (43.0-81.0); PLATELET COUNT (AUTO) 386 K/uL (150-450); WHITE BLOOD COUNT (AUTO) 10.9 K/uL (4.3-11.0)
[2021-12-14 08:24] LABS: CALCIUM, SERUM 8.3 mg/dL (8.5-10.1); CREATININE 0.4 mg/dL (0.6-1.3); MAGNESIUM 1.9 mg/dL (1.8-2.4); PHOSPHORUS 4.5 mg/dL (2.5-4.9); POTASSIUM 3.7 mmol/L (3.5-5.1)
[2021-12-14] MEDS: CHOLECALCIFEROL 1,000 UNIT TABLET (VIT D3) GT SCH (08:56)
[2021-12-14] MEDS: MULTIVITAMINS,THERAGRAN 1 UDTAB TABLET GT SCH (08:56)
[2021-12-14] MEDS: CALCIUM CARB 600MG /VIT D 1 EACH TABLET GT SCH (08:56)
[2021-12-14] MEDS: ZINC SULFATE 220 MG CAPSULE GT SCH (08:56)
[2021-12-14] MEDS: ASCORBIC ACID 500 MG TABLET GT SCH (08:56)
[2021-12-14] MEDS: PANTOPRAZOLE 40 MG/PACK PACK GT SCH (08:57)
[2021-12-14] MEDS: QUETIAPINE FUMARATE 100 MG TABLET GT SCH ×2 (08:57→16:05)
[2021-12-14] MEDS: CEFEPIME 2 GM in IV D5W 100 ML IV SCH ×2 (09:02→20:33)
[2021-12-14] MEDS: PROSOURCE / PROSTAT (PYXIS) 30 ML UDC GT SCH ×3 (09:02→16:05)
[2021-12-14] MEDS: VANCOMYCIN 1 GM in IV D5W 250ml IV SCH ×2 (09:59→18:27)
[2021-12-14] MEDS: DAKINS QUARTER STRENGTH (0.125%) 480 ML BOTTLE TOP SCH (10:10)
[2021-12-14 13:00] VITALS: BP 99/52
--- NOTE | 2021-12-14 15:27 | NUR ---
Wound Care Provided wound care, pending debridement. of wound. Patient tolerated well. Wound: White, green , pink, raised skin with foul smell. Changed linen and cleaned pt with [employer]MB[employer] TIPPER HAND's assistance. New dressings. clean and dry. Late Entry, called conservator and left 2nd message for today around 1pm Air mattress pending delivery per [employer], heel protectors will be delivered.
[2021-12-14 16:00] VITALS: BP 118/62
[2021-12-14] MEDS: SOD FERRIC GLUC 125 MG in IV NS 0.9% 100 ML IV SCH (16:10)
--- NOTE | 2021-12-14 19:20 | NUR ---
RN Closing Notes PT confused not able to express his own concerns, moans throughout shift. Provided care and medications as prescribed. Patient remained safe throughout shift. All safety precautions taken, call light and table within reach and bed at lowest position.Provided wound care as directed, collected specimens for wound and urine culture, laboratory aware and will belt picker specimens. IV with no signs of infiltration, patient on room air with no signs of respiratory distress.
--- NOTE | 2021-12-14 19:30 | NUR ---
RN OPENING NOTES RECEIVED PT IN BED, ASLEEP, AWAKENS TO VERBAL AND TACTILE STIMULI. AOx1, ABLE TO MUMBLE INCOMPREHENSIBLE WORDS. ON RA AND TOLERATING WELL. NO SOB NOTED. NO S/SX OF RESPIRATORY DISTRESS NOTED. IV ACCESS IN R FA #20G. IV IS INTACT, PATENT, AND FLUSHING WELL. SAFETY PRECAUTIONS IN PLACE: BED IN LOWEST, LOCKED POSITION, SIDERAILS UP x2, AND BRAKES ON. TABLE AND CALL LIGHT WITHIN REACH. ALL NEEDS MET AT THIS TIME.
[2021-12-14 20:00] VITALS: BP 105/53
[2021-12-14] MEDS: MIRTAZAPINE 15 MG TABLET GT SCH (21:03)
[2021-12-15] MEDS: VANCOMYCIN 1 GM in IV D5W 250ml IV SCH ×3 (01:00→19:34)
[2021-12-15] MEDS: PHENYTOIN SUSP UDC 100 MG/4 ML UDC GT SCH ×3 (04:32→20:51)
--- NOTE | 2021-12-15 06:47 | NUR ---
RN CLOSING NOTES PT IN BED, AWAKE, MAKING NOISES. AOx1, ABLE TO MUMBLE INCOMPREHENSIBLE WORDS. ON RA AND TOLERATING WELL. NO SOB NOTED. NO S/SX OF RESPIRATORY DISTRESS NOTED. IV ACCESS IN R FA #20G. IV IS INTACT, PATENT, AND FLUSHING WELL. ALL ORDERS CARRIED OUT. ALL NEEDS MET. PT KEPT CLEAN AND DRY. SAFETY PRECAUTIONS IN PLACE: BED IN LOWEST, LOCKED POSITION, SIDERAILS UP x2, AND BRAKES ON. TABLE AND CALL LIGHT WITHIN REACH. WILL ENDORSE TO ONCOMING SHIFT FOR SHYAM. Addendum: 12/15/21 at 0649 by VIOLETTE SNOWDEN RN WOUND CARE DONE. SWABS COLLECTED.
[2021-12-15 07:12] LABS: BASOPHILS # (AUTO) 0.1 K/uL (0.0-0.2); BASOPHILS % (AUTO) 0.9 % (0.0-2.0); EOSINOPHILS % (AUTO) 1.6 % (0.0-6.0); HEMATOCRIT 28 % (39-51); HEMOGLOBIN 8.6 g/dL (13.5-17.5); LYMPHOCYTES % (AUTO) 10.2 % (20.0-44.0); MEAN CORPUSCULAR HGB CONC 31 g/dl (31.0-36.0); MEAN CORPUSCULAR VOLUME 73 fL (80-96); MONOCYTES # (AUTO) 0.6 K/uL (0.1-1.30); MONOCYTES % (AUTO) 6.5 % (2.0-12.0); NEUTROPHILS # (AUTO) 8.1 K/uL (1.8-8.9); NEUTROPHILS % (AUTO) 80.8 % (43.0-81.0); PLATELET COUNT (AUTO) 409 K/uL (150-450); RED BLOOD CELL COUNT(AUTO) 3.81 MIL/uL (4.5-6.0)
--- NOTE | 2021-12-15 07:30 | NUR ---
MS RN OPENING NOTES RECEIVED PT IN BED AWAKE. PATIENT IS AOx1, ABLE TO MUMBLE INCOMPREHENSIBLE WORDS. ON RA AND TOLERATING WELL. NO SOB NOTED. NO S/SX OF RESPIRATORY DISTRESS NOTED. IV ACCESS IN R FA #20G INTACT. IV IS INTACT PATENT, AND FLUSHING WELL. ON GTUBE FEEDING OF JEVITY 1.2 AT 40 ML/HR. ALL SAFETY PRECAUTIONS IN PLACE: BED IN LOWEST, LOCKED POSITION, SIDERAILS UP x2, AND BRAKES ON. TABLE AND CALL LIGHT WITHIN REACH. HEAD OF THE BED ELEVATED FOR ASPIRATION PRECAUTION. WILL CONTINUE TO MONITOR.
[2021-12-15 07:42] LABS: CALCIUM, SERUM 8.3 mg/dL (8.5-10.1); CREATININE 0.3 mg/dL (0.6-1.3); MAGNESIUM 1.7 mg/dL (1.8-2.4); PHOSPHORUS 3.3 mg/dL (2.5-4.9); POTASSIUM 3.7 mmol/L (3.5-5.1)
[2021-12-15] MEDS: PROSOURCE / PROSTAT (PYXIS) 30 ML UDC GT SCH ×3 (08:17→17:25)
[2021-12-15] MEDS: CEFEPIME 2 GM in IV D5W 100 ML IV SCH ×2 (08:17→20:38)
[2021-12-15] MEDS: ENSURE ENLIVE 237 ML LIQUID (VANILLA) PO SCH ×2 (08:18→17:00)
[2021-12-15] MEDS: PANTOPRAZOLE 40 MG/PACK PACK GT SCH (09:46)
[2021-12-15] MEDS: CALCIUM CARB 600MG /VIT D 1 EACH TABLET GT SCH (09:46)
[2021-12-15] MEDS: MULTIVITAMINS,THERAGRAN 1 UDTAB TABLET GT SCH (09:47)
[2021-12-15] MEDS: CHOLECALCIFEROL 1,000 UNIT TABLET (VIT D3) GT SCH (09:47)
[2021-12-15] MEDS: ZINC SULFATE 220 MG CAPSULE GT SCH (09:47)
[2021-12-15] MEDS: QUETIAPINE FUMARATE 100 MG TABLET GT SCH ×2 (09:47→17:24)
[2021-12-15] MEDS: ASCORBIC ACID 500 MG TABLET GT SCH (09:47)
[2021-12-15] MEDS: DAKINS QUARTER STRENGTH (0.125%) 480 ML BOTTLE TOP SCH (09:48)
[2021-12-15] MEDS: LACTAID 1 TAB TABLET GT SCH ×2 (10:19→17:25)
[2021-12-15] MEDS: Magnesium 1GM/D5W 100ML PREMIX 100 ML IV SCH ×2 (11:34→13:12)
[2021-12-15] MEDS: SOD FERRIC GLUC 125 MG in IV NS 0.9% 100 ML IV SCH (14:58)
[2021-12-15] MEDS: JEVITY 1.2 CAL 1,000 ML BOTTLE GT PRN (17:25)
--- NOTE | 2021-12-15 18:27 | NUR ---
MS RN CLOSING NOTES PT IN BED AWAKE. PATIENT IS AOx1, ABLE TO MUMBLE INCOMPREHENSIBLE WORDS. ON RA AND TOLERATING WELL. NO SOB NOTED. NO S/SX OF RESPIRATORY DISTRESS NOTED. IV ACCESS IN L FA #20G INTACT. IV IS INTACT PATENT, AND FLUSHING WELL. ON GTUBE FEEDING OF JEVITY 1.2 AT 65 ML/HR FOR 24 HOURS.ALL DUE MEDS GIVEN ORDERED. CALLED FOR ENSURE ORDER, ANANTH THE DIETITION STATED IT IS DC ORDER. THE FEEDING OF JEVITY INCREASED TO 65 ML/HR FOR 24 HOURS. PATIENT TOLERATED WELL. SWALLOW EVAL DONE TODAY, PATIENT CAN HAVE WATER WHEN ASKED, WITH PRECAUTIONS.CALLED CONSERVATOR FOR CONSENT OF WOUND DEBRIEDMENT WITH THE PHONE NUMBER [phone] WITH THE NAME OF ANTOINETTE ALCALA AND LEFT MASSAGE, NO CALLS BACK RECEIVED. ALL SAFETY PRECAUTIONS IN PLACE: BED IN LOWEST, LOCKED POSITION, SIDERAILS UP x2, AND BRAKES ON. TABLE AND CALL LIGHT WITHIN REACH. HEAD OF THE BED ELEVATED FOR ASPIRATION PRECAUTION. WILL ENDORSE FOR SHYAM.
--- NOTE | 2021-12-15 19:35 | NUR ---
MS RN OPENING NOTE RECEIVED PT AWAKE IN BED. A/O X1. PT STABLE ON ROOM AIR. NO SOB OR S/S OF RESPIRATORY DISTRESS. BREATHING EVEN AND UNLABORED. WITH NAVARRO, DRAINING CLEAR YELLOW URINE BY GRAVITY. IV ACCESS TRUMAN 20 GAUGE, INTACT AND PATENT. WITH GTUBE RUNNING JEVITY 1.2 @ 65 ML/HR, TOLERATING WELL. SAFETY PRECAUTIONS IN PLACE. BED IN LOWEST LOCKED POSITION, HOB ELEVATED, SIDE RAILS UP X3, AND CALL LIGHT AND TABLE WITHIN REACH. ALL NEEDS MET AT THIS TIME.
[2021-12-15 20:00] VITALS: BP 105/62
[2021-12-15] MEDS: MIRTAZAPINE 15 MG TABLET GT SCH (21:23)
[2021-12-15 22:36] LABS: BAND % (MANUAL) 3 % (0.0-5.0); EOSINOPHILS % (MANUAL) 1 % (0-4); LYMPHOCYTES % (MANUAL) 13 % (16-48); MONOCYTES % (MANUAL) 2 % (0-11.0); NEUTROPHILS % (MANUAL) 81 (42-76)
[2021-12-16] MEDS: VANCOMYCIN 1 GM in IV D5W 250ml IV SCH ×3 (01:09→17:15)
[2021-12-16] MEDS: PHENYTOIN SUSP UDC 100 MG/4 ML UDC GT SCH ×3 (04:19→21:24)
--- NOTE | 2021-12-16 06:38 | NUR ---
MS RN CLOSING NOTE PT AWAKE IN BED. A/O X1. PT STABLE ON ROOM AIR. NO SOB OR S/S OF RESPIRATORY DISTRESS. BREATHING EVEN AND UNLABORED. WITH NAVARRO, DRAINING CLEAR YELLOW/PINK URINE BY GRAVITY, 1200 CC THIS SHIFT. IV ACCESS TRUMAN 20 GAUGE, INTACT AND PATENT. WITH GTUBE RUNNING JEVITY 1.2 @ 65 ML/HR, TOLERATED WELL. ALL DUE MEDS GIVEN ORDERED. SAFETY PRECAUTIONS IN PLACE AT ALL TIMES. BED IN LOWEST LOCKED POSITION, HOB ELEVATED, SIDE RAILS UP X3, AND CALL LIGHT AND TABLE WITHIN REACH. ALL NEEDS MET AT THIS TIME AND WILL ENDORSE TO ONCOMING NURSE FOR SHYAM.
[2021-12-16 06:48] LABS: BASOPHILS # (AUTO) 0.1 K/uL (0.0-0.2); BASOPHILS % (AUTO) 0.7 % (0.0-2.0); EOSINOPHILS % (AUTO) 1.1 % (0.0-6.0); HEMATOCRIT 27 % (39-51); HEMOGLOBIN 8.1 g/dL (13.5-17.5); LYMPHOCYTES # (AUTO) 1.1 K/uL (0.8-4.8); LYMPHOCYTES % (AUTO) 9.5 % (20.0-44.0); MEAN CORPUSCULAR HGB CONC 31 g/dl (31.0-36.0); MEAN CORPUSCULAR VOLUME 73 fL (80-96); MONOCYTES # (AUTO) 0.9 K/uL (0.1-1.30); MONOCYTES % (AUTO) 8.2 % (2.0-12.0); NEUTROPHILS # (AUTO) 9.1 K/uL (1.8-8.9); NEUTROPHILS % (AUTO) 80.5 % (43.0-81.0); PLATELET COUNT (AUTO) 369 K/uL (150-450); RED BLOOD CELL COUNT(AUTO) 3.65 MIL/uL (4.5-6.0); WHITE BLOOD COUNT (AUTO) 11.3 K/uL (4.3-11.0)
[2021-12-16 07:10] LABS: CALCIUM, SERUM 8.1 mg/dL (8.5-10.1); CREATININE 0.4 mg/dL (0.6-1.3); MAGNESIUM 1.8 mg/dL (1.8-2.4); POTASSIUM 3.9 mmol/L (3.5-5.1)
--- NOTE | 2021-12-16 07:13 | NUR ---
MS RN OPENING NOTES RECEIVED PT IN BED AWAKE. PATIENT IS AOx1, ABLE TO MUMBLE INCOMPREHENSIBLE WORDS. ON RA AND TOLERATING WELL. NO SOB NOTED. NO S/SX OF RESPIRATORY DISTRESS NOTED. IV ACCESS IN L FA #20G INTACT. IV IS INTACT PATENT, AND FLUSHING WELL. ON GTUBE FEEDING OF JEVITY 1.2 AT 65 ML/HR. ALL SAFETY PRECAUTIONS IN PLACE: BED IN LOWEST, LOCKED POSITION, SIDERAILS UP x2, AND BRAKES ON. TABLE AND CALL LIGHT WITHIN REACH. HEAD OF THE BED ELEVATED FOR ASPIRATION PRECAUTION. WILL CONTINUE TO MONITOR.
[2021-12-16] MEDS: ENSURE ENLIVE 237 ML LIQUID (VANILLA) PO SCH ×2 (08:00→16:56)
[2021-12-16] MEDS: CEFEPIME 2 GM in IV D5W 100 ML IV SCH ×2 (08:29→19:53)
[2021-12-16] MEDS: ZINC SULFATE 220 MG CAPSULE GT SCH (09:59)
[2021-12-16] MEDS: PANTOPRAZOLE 40 MG/PACK PACK GT SCH (09:59)
[2021-12-16] MEDS: ASCORBIC ACID 500 MG TABLET GT SCH (09:59)
[2021-12-16] MEDS: CHOLECALCIFEROL 1,000 UNIT TABLET (VIT D3) GT SCH (10:00)
[2021-12-16] MEDS: MULTIVITAMINS,THERAGRAN 1 UDTAB TABLET GT SCH (10:00)
[2021-12-16] MEDS: CALCIUM CARB 600MG /VIT D 1 EACH TABLET GT SCH (10:00)
[2021-12-16] MEDS: QUETIAPINE FUMARATE 100 MG TABLET GT SCH ×2 (10:00→16:55)
[2021-12-16] MEDS: LACTAID 1 TAB TABLET GT SCH ×2 (10:00→16:55)
[2021-12-16] MEDS: PROSOURCE / PROSTAT (PYXIS) 30 ML UDC GT SCH ×3 (10:01→16:55)
[2021-12-16] MEDS: DAKINS QUARTER STRENGTH (0.125%) 480 ML BOTTLE TOP SCH (10:02)
[2021-12-16 12:14] LABS: BAND % (MANUAL) 2 % (0.0-5.0); EOSINOPHILS % (MANUAL) 1 % (0-4); LYMPHOCYTES % (MANUAL) 8 % (16-48); MONOCYTES % (MANUAL) 5 % (0-11.0); NEUTROPHILS % (MANUAL) 84 (42-76)
[2021-12-16] MEDS: JEVITY 1.2 CAL 1,000 ML BOTTLE GT PRN (13:05)
[2021-12-16] MEDS: SOD FERRIC GLUC 125 MG in IV NS 0.9% 100 ML IV SCH (14:00)
--- NOTE | 2021-12-16 18:37 | NUR ---
MS RN CLOSING NOTES RECEIVED PT IN BED AWAKE. PATIENT IS AOx1, ABLE TO MUMBLE INCOMPREHENSIBLE WORDS. ON RA AND TOLERATING WELL. NO SOB NOTED. NO S/SX OF RESPIRATORY DISTRESS NOTED. IV ACCESS IN L FA #20G INTACT. IV IS INTACT PATENT, AND FLUSHING WELL. ON GTUBE FEEDING OF JEVITY 1.2 AT 65 ML/HR. S/P OF THE WOUND DEBRIDEMENT BY SHAREPOINT DEVELOPER ROWDY. WOUND CULTURE AND RIGHT ISCHIAL WOUND SAMPLE SENT TO LAB PER SHAREPOINT DEVELOPER ROWDY REQUEST.ALL DUE MEDS AND TREATMENT GIVEN ORDER. ALL SAFETY PRECAUTIONS IN PLACE: BED IN LOWEST, LOCKED POSITION, SIDE RAILS UP x2, AND BRAKES ON. TABLE AND CALL LIGHT WITHIN REACH. HEAD OF THE BED ELEVATED FOR ASPIRATION PRECAUTION. WILL ENDORSE FOR SHYAM.
--- NOTE | 2021-12-16 19:42 | NUR ---
MS RN OPENING NOTE RECEIVED PT AWAKE IN BED. A/O X1. PT STABLE ON ROOM AIR. NO SOB OR S/S OF RESPIRATORY DISTRESS. BREATHING EVEN AND UNLABORED. WITH NAVARRO, DRAINING YELLOW/PINK URINE BY GRAVITY. IV ACCESS TRUMAN 20 GAUGE, INTACT AND PATENT. WITH GTUBE RUNNING JEVITY 1.2 @ 65 ML/HR, TOLERATING WELL. SAFETY PRECAUTIONS IN PLACE. BED IN LOWEST LOCKED POSITION, HOB ELEVATED, SIDE RAILS UP X3, AND CALL LIGHT AND TABLE WITHIN REACH. ALL NEEDS MET AT THIS TIME.
[2021-12-16 20:00] VITALS: BP 99/51
[2021-12-16] MEDS: MIRTAZAPINE 15 MG TABLET GT SCH (21:24)
[2021-12-17] MEDS: VANCOMYCIN 1 GM in IV D5W 250ml IV SCH ×3 (01:28→17:31)
[2021-12-17] MEDS: PHENYTOIN SUSP UDC 100 MG/4 ML UDC GT SCH ×2 (04:13→12:37)
[2021-12-17] MEDS: LORAZEPAM 1 MG TABLET GT PRN (04:13)
--- NOTE | 2021-12-17 04:13 | NUR ---
RN NOTE PT NOTED TO BE VERY RESTLESS, CONSTANTLY SHOUTING INCOMPREHENSIBLE WORDS. ADMINISTERED ATIVAN 1 MG FOR ANXIETY ORDERED. TURNED AND REPOSITIONED. MADE COMFORTABLE IN BED. OFFLOADED WITH PILLOWS. ALL NEEDS MET AT THIS TIME.
[2021-12-17 06:41] LABS: CALCIUM, SERUM 8.3 mg/dL (8.5-10.1); CREATININE 0.3 mg/dL (0.6-1.3); POTASSIUM 4.1 mmol/L (3.5-5.1)
--- NOTE | 2021-12-17 07:30 | NUR ---
RN OPENING NOTE PATIENT AWAKE IN BED RESTING. A/O X1. NO S/S OF PAIN NOTED AT THIS TIME. ON ROOM AIR, NO DISTRESS OR SHORTNESS OF BREATH NOTED. IV ACCESS TRUMAN #20G INTACT, PATENT AND FLUSHING WELL. PATIENT HAVE A NAVARRO CATHETER IN PLACE AND DRAINING WELL. FALL AND SAFETY MEASURES IN PLACE, BED ALARM ON, BED IN LOW AND LOCK POSITION, CALL LIGHT AND TABLE WITHIN EASY REACH, SIDE RAILS UP X2. WILL CONTINUE TO MONITOR.
[2021-12-17 08:00] VITALS: BP 101/63
[2021-12-17] MEDS: ENSURE ENLIVE 237 ML LIQUID (VANILLA) PO SCH ×2 (08:00→17:00)
[2021-12-17] MEDS: PROSOURCE / PROSTAT (PYXIS) 30 ML UDC GT SCH ×3 (09:58→17:28)
[2021-12-17] MEDS: CALCIUM CARB 600MG /VIT D 1 EACH TABLET GT SCH (09:58)
[2021-12-17] MEDS: JEVITY 1.2 CAL 1,000 ML BOTTLE GT PRN (09:58)
[2021-12-17] MEDS: MULTIVITAMINS,THERAGRAN 1 UDTAB TABLET GT SCH (09:59)
[2021-12-17] MEDS: PANTOPRAZOLE 40 MG/PACK PACK GT SCH (09:59)
[2021-12-17] MEDS: CHOLECALCIFEROL 1,000 UNIT TABLET (VIT D3) GT SCH (09:59)
[2021-12-17] MEDS: QUETIAPINE FUMARATE 100 MG TABLET GT SCH ×2 (09:59→17:28)
[2021-12-17] MEDS: ASCORBIC ACID 500 MG TABLET GT SCH (10:00)
[2021-12-17] MEDS: ZINC SULFATE 220 MG CAPSULE GT SCH (10:00)
[2021-12-17] MEDS: LACTAID 1 TAB TABLET GT SCH ×2 (10:01→17:27)
[2021-12-17] MEDS: CEFEPIME 2 GM in IV D5W 100 ML IV SCH (10:11)
[2021-12-17] MEDS ORDERED: SODI473S8 TOP (10:25)
[2021-12-17] MEDS ORDERED: VANC1PLA9 IV (10:25)
[2021-12-17] MEDS ORDERED: CEFE2FRO IV (10:25)
[2021-12-17] MEDS: DAKINS QUARTER STRENGTH (0.125%) 480 ML BOTTLE TOP SCH (12:28)
[2021-12-17 16:00] VITALS: BP 112/61
[2021-12-17] MEDS: SOD FERRIC GLUC 125 MG in IV NS 0.9% 100 ML IV SCH (16:13)
--- NOTE | 2021-12-17 19:25 | NUR ---
TRANSPORT ENGINEER NOTE PATIENT DISCHARGE IN STABLE MEDICAL CONDITION. A/O X1. V/S TAKEN, STABLE, AND RECORDED. IV ACCESS TRUMAN, PATIENT WILL BE ON IV ANTIBIOTICS FOR 6 DAYS. PATIENT WENT BACK TO HIS FACILITY WITH NAVARRO CATHETER. SKIN ASSESSMENT DONE AND PICTURES TAKEN, PATIENT HAVE MULTIPLE WOUNDS. NAME ARM BAND REMOVED. ALL BELONGINGS CHECKED AND SIGNED. HEALTH TEACHING AND DISCHARGE INSTRUCTIONS GIVEN TO PATIRCK ESCALANTE AT [facility] OVER THE PHONE REPORT, VERBALIZED UNDERSTANDING. PATIENT LEFT UNIT VIA GURNEY WITH NO SIGNS OF DISTRESS ACCOMPANIED BY PARAMEDICS. CHARGE NURSE AWARE OF DISCHARGED.
== END 2021-12-17 19:25 | DRG 364 ==
LOC: ER 20:01 → TRANSITION 12-13 01:01 → UNDOADMIN 12-13 01:01 → MED 12-13 07:47
PROVIDERS: ADMIT Nurse Practitioner Family; ATTEND Nurse Practitioner Acute Care
PROC: 30233N1 Transfusion of Nonautologous Red Blood Cells into Peripheral Vein, Percutaneous Approach (ICD-10-PCS; principal; 2021-12-13)
PROC: 0KBP0ZZ Excision of Left Hip Muscle, Open Approach (ICD-10-PCS; 2021-12-16)
PROC: 0K9F0ZZ Drainage of Right Trunk Muscle, Open Approach (ICD-10-PCS; 2021-12-16)
PROC: 0KBF0ZZ Excision of Right Trunk Muscle, Open Approach (ICD-10-PCS; 2021-12-16)
PROC: 0KBN0ZZ Excision of Right Hip Muscle, Open Approach (ICD-10-PCS; 2021-12-16)
PROC: 0JBL0ZZ Excision of Right Upper Leg Subcutaneous Tissue and Fascia, Open Approach (ICD-10-PCS; 2021-12-16)
DX: L89.214 Pressure ulcer of right hip, stage 4 (principal); G93.49 Other encephalopathy; L89.313 Pressure ulcer of right buttock, stage 3; J96.10 Chronic respiratory failure, unspecified whether with hypoxia or hypercapnia; L89.626 Pressure-induced deep tissue damage of left heel; L89.616 Pressure-induced deep tissue damage of right heel; E87.1 Hypo-osmolality and hyponatremia; L97.419 Non-pressure chronic ulcer of right heel and midfoot with unspecified severity; D62 Acute posthemorrhagic anemia; R62.7 Adult failure to thrive; L98.423 Non-pressure chronic ulcer of back with necrosis of muscle; L89.134 Pressure ulcer of right lower back, stage 4; L89.114 Pressure ulcer of right upper back, stage 4; L89.224 Pressure ulcer of left hip, stage 4; K76.9 Liver disease, unspecified; N39.0 Urinary tract infection, site not specified; Z20.822 Contact with and (suspected) exposure to COVID-19; L02.413 Cutaneous abscess of right upper limb; F84.0 Autistic disorder; G40.909 Epilepsy, unspecified, not intractable, without status epilepticus; D50.9 Iron deficiency anemia, unspecified; E83.42 Hypomagnesemia; K52.89 Other specified noninfective gastroenteritis and colitis; Z79.899 Other long term (current) drug therapy; B96.89 Other specified bacterial agents as the cause of diseases classified elsewhere; M62.50 Muscle wasting and atrophy, not elsewhere classified, unspecified site; L98.499 Non-pressure chronic ulcer of skin of other sites with unspecified severity; L97.519 Non-pressure chronic ulcer of other part of right foot with unspecified severity; L02.419 Cutaneous abscess of limb, unspecified
CPT/HCPCS: 36415; 70450-TC; 71045-TC; 80048-TC; 80076-TC; 80202-TC; 81001; 82728-TC; 83540-TC; 83605-TC; 83735-TC; 84100-TC; 84443-TC; 84484-TC; 85025-TC; 86850-TC; 87040-TC; 87070-TC; 87081-TC; 87086-TC; 87186-TC; 92526; 92611-TC; A4217; A6253; A6403; C9803; G0378; J0692; J0696; J2405; J2916; J3370; J3475; J3490; J7030; J7050; J7060; P9016

== ENCOUNTER 2022-01-05 07:33 | Emergency (ER) | payer OTHER ==
[~2022-01-05] VITALS: Ht 182.9 cm; Wt 67.6 kg
[~2022-01-05 07:33] MED LIST changes: +ARGI1POW13 GT; +CEFE2FRO IV; +COLL30OI TP; +FERR300L GT; +SODI473S8 TOP; +VANC1PLA9 IV
--- NOTE | 2022-01-05 07:52 | NUR ---
DR WANG AT BEDSIDE FOR EVAL
[2022-01-05] MEDS ORDERED: FLUORESCEIN SODIUM OPHTH 1 EA STRIP OP ONE (08:00)
[2022-01-05] MEDS ORDERED: TETRACAINE HCL 0.5% OPHTALMIC 15 ML BOTTLE OP ONE (08:00)
[2022-01-05] MEDS ORDERED: FLUORESCEIN SODIUM OPHTH 1 EA STRIP ONE (08:04)
--- NOTE | 2022-01-05 08:22 | NUR ---
CALLED [facility] [phone] PER TRACY PLEASE FAX CLINICALS WHEN WE HAVE THEM TO: [phone]
[2022-01-05] MEDS ORDERED: LORAZEPAM INJ 2 MG/ML VIAL IV ONE ×3 (08:30→16:00)
[2022-01-05] MEDS ORDERED: LORAZEPAM INJ 2 MG/ML VIAL ONE ×3 (08:43→16:44)
--- NOTE | 2022-01-05 08:45 | NUR ---
SPOKE W/ MATT, RN DIGITAL FORENSIC ANALYST AT [facility] AND STATED THAT LEFT EYE PROBLEM WAS NOTED LAST NIGHT AT 1220 PER FASHION SHOW DIRECTOR RN DIGITAL FORENSIC ANALYST'S NOTES; DENIES TRAUMA NOR FALL, BUT STATES THAT PT HAS "TENDENCY OF HITTING HIMSELF". DR. WANG MADE AWARE.
--- NOTE | 2022-01-05 08:51 | NUR ---
COVID SWAB COLLECTED AND SENT TO LAB
[2022-01-05 09:00] LABS: BASOPHILS % (AUTO) 0.4 % (0.0-2.0); EOSINOPHILS % (AUTO) 3.1 % (0.0-6.0); HEMATOCRIT 31 % (39-51); HEMOGLOBIN 9.7 g/dL (13.5-17.5); LYMPHOCYTES # (AUTO) 1.2 K/uL (0.8-4.8); MEAN CORPUSCULAR HGB CONC 31 g/dl (31.0-36.0); MEAN CORPUSCULAR VOLUME 77 fL (80-96); MONOCYTES # (AUTO) 0.6 K/uL (0.1-1.30); MONOCYTES % (AUTO) 6.8 % (2.0-12.0); NEUTROPHILS # (AUTO) 6.4 K/uL (1.8-8.9); NEUTROPHILS % (AUTO) 75.7 % (43.0-81.0); PLATELET COUNT (AUTO) 347 K/uL (150-450); RED BLOOD CELL COUNT(AUTO) 4.05 MIL/uL (4.5-6.0); WHITE BLOOD COUNT (AUTO) 8.5 K/uL (4.3-11.0)
--- NOTE | 2022-01-05 09:01 | NUR ---
CALLED [facility] [phone] ASKED IAN TO BE CONNECTED TO AN TRIPLE AIR VALVE TESTER FOR A QUESTION. FAXING FACE SHEET TO [phone].
--- NOTE | 2022-01-05 09:11 | NUR ---
PT TAKEN TO RADIOLOGY FOR CT
--- NOTE | 2022-01-05 09:12 | NUR ---
PER IAN OF [facility], JUST SEND CLINICAL AND AUTHORIZATION
[2022-01-05 09:17] LABS: ALBUMIN 2.1 g/dL (3.4-5.0); BILIRUBIN,DIRECT 0.1 mg/dL (0.0-0.2); BILIRUBIN,TOTAL 0.2 mg/dL (0.2-1.0); CALCIUM, SERUM 8.5 mg/dL (8.5-10.1); CREATININE 0.3 mg/dL (0.6-1.3); POTASSIUM 4.8 mmol/L (3.5-5.1); TOTAL PROTEIN, SERUM 6.7 g/dL (6.4-8.2)
--- NOTE | 2022-01-05 15:34 | NUR ---
CALLED [facility] [phone] DR[address] MALDONADO SPEAKING WITH DR. WANG.
--- NOTE | 2022-01-05 15:41 | NUR ---
PT ACCEPTED UNDER DR. BROOKE TO ED PLEASE CALL [phone] FOR REPORT.
--- NOTE | 2022-01-05 15:46 | NUR ---
[facility] CALLED FOR TRANSPORT ETA 60 MINS PER SHANTI.
[2022-01-05 16:00] VITALS: BP 124/66
--- NOTE | 2022-01-05 16:43 | NUR ---
REPORT GIVEN TO PATRICIA NGUYEN FOR SHYAM
--- NOTE | 2022-01-05 17:11 | NUR ---
PATIENT PICKED UP IN STABLE CONDITION
== END 2022-01-05 17:12 | disposition short-term general hospital (02) ==
LOC: ER 07:48
DX: H21.02 Hyphema, left eye (principal); F20.9 Schizophrenia, unspecified; F79 Unspecified intellectual disabilities; D64.9 Anemia, unspecified; G40.909 Epilepsy, unspecified, not intractable, without status epilepticus; J96.10 Chronic respiratory failure, unspecified whether with hypoxia or hypercapnia; Z20.822 Contact with and (suspected) exposure to COVID-19; Z86.16 Personal history of COVID-19; Z87.01 Personal history of pneumonia (recurrent); Z91.52 Personal history of nonsuicidal self-harm; L89.154 Pressure ulcer of sacral region, stage 4; F41.9 Anxiety disorder, unspecified
CPT/HCPCS: 99285; 96374; 70450; 87426; 96376; 85025; 80048; 80076; 36415; 85730; 70480; J2060 ×3; A6410; C9803